=== PATIENT | female | born 1980 | race Caucasian/White ===

== ENCOUNTER → 2017-02-23 | Outpatient (CLI) | payer MEDICAID ==
[~2017-02-23] MED LIST: ACHD5005 PO; ALPR1T PO; AMOX500C2 PO; CEPH500C PO; DULO20CA; FRS325T PO; GFCD10B PO; HYDR1CAP2 PO; IBP600T1 PO; METH20TA PO; METR500T PO; PRCD5U PO; PREN-115 PO; PREN1TAB14; QTP200T; QTP200T PO; TRAZ-28 PO; ZLP10T PO
--- NOTE | 2017-02-23 15:23 | Diagnostic Imaging Report ---
OB ultrasound. INDICATION: survey. FINDINGS: There are no prior studies available for comparison. There is a single live fetus in cephalic presentation. heart motion is noted and a rate of 155 bpm is recorded. There are no abnormalities identified. The growth parameters are fairly uniform. The growth parameters are as follows: BPD: 5.68, 23 weeks 3 days. Head circumference: 21.09, 23 weeks 2 days. Abdominal circumference: 19.81, 24 weeks 4 days. Femur length: 4.16, 22 weeks 4 days. The estimated weight is 644 g. The LMP percentile is 60%. The placenta is anterior and there is no previa. The amniotic fluid volume is within normal limits. IMPRESSION: 1. There is a single live fetus of approximately 23 weeks 5 days gestation +/- 2 weeks. The EDC is June 17, 2017. 2. There are no abnormalities identified. 3. The growth parameters are fairly uniform. Dictated by: Dictated on workstation # [id number]
== END ==
LOC: RAD 10:58
PROVIDERS: ATTEND Obstetrics & Gynecology
DX: Z34.92 Encounter for supervision of normal pregnancy, unspecified, second trimester (principal); Z3A.23 23 weeks gestation of pregnancy
CPT/HCPCS: 76805

== ENCOUNTER 2017-05-17 18:31 | Outpatient (CLI) | payer MEDICAID ==
[~2017-05-17] VITALS: Ht 162.6 cm; Wt 94.8 kg
[2017-05-17 18:44] VITALS: BP 142/96
[2017-05-17 19:05] VITALS: BP 126/72
[2017-05-17] MEDS ORDERED: PREN-142 PO (19:05)
[2017-05-17] MEDS ORDERED: ACET325T38 PO (19:05)
[2017-05-17] MEDS ORDERED: fluCOnazole (DIFLUCAN) 100 MG TAB PO NR (19:30)
[2017-05-17] MEDS ORDERED: D5 LR IV SOLUTION 1,000 ML IV ONE (19:30)
[2017-05-17 20:04] LABS: BILIRUBIN,URINE NEGATIVE (NEGATIVE); KETONES,URINE NEGATIVE (NEGATIVE); LEUKOCYTE ESTERASE ,URINE 3+ (NEGATIVE); NITRITE,URINE NEGATIVE (NEGATIVE); PH,URINE 7 (5-9); PROTEIN,URINE 1+ (NEGATIVE); UROBILINOGEN,URINE NORMAL (NORMAL)
[2017-05-17 20:11] LABS: YEAST,URINE SMALL /HPF
--- NOTE | 2017-05-17 20:37 | Diagnostic Imaging Report ---
INDICATION: leaking fluid COMPARISON: 02/23/2017. Biophysical Profile Score: Movement: 2 Breathin Tone: 2 Fluid: 2 Total: 06/29 Heart Rate: 144 BPM Presentation is cephalic. Placenta is anterior. DYLLAN is 17.7cm. The single largest vertical pocket is 7.6 cm. IMPRESSION: Normal Biophysical Profile Score. Dictated by: Dictated on workstation # [id number]
--- NOTE | 2017-05-18 12:16 | Physician Query-Final Dx ---
TIN DOBSON 05/18/17 1216: Clinic Account Progress/Dx Physician Query: Please give diagnosis Date of Service May 17, 2017 at 18:31 ТАТЬЯНА CORONA MD 05/19/17 1627: Clinic Account Progress/Dx DIAGNOSIS: Diagnosis Vaginal discharge, cramping, TIN DOBSON May 18, 2017 12:16 ТАТЬЯНА CORONA MD May 19, 2017 16:27
== END 2017-05-17 21:10 | disposition home or self-care (01) ==
LOC: WSo 18:31 → LDRP 18:31 → WSo 21:10
PROVIDERS: ATTEND Obstetrics & Gynecology
DX: O26.893 Other specified pregnancy related conditions, third trimester (principal); N89.8 Other specified noninflammatory disorders of vagina; Z3A.35 35 weeks gestation of pregnancy
CPT/HCPCS: 76819; 81000; 87088; 87186; 96360; 96361; 99214

== ENCOUNTER 2017-05-21 17:23 | Observation (INO) | payer MEDICAID ==
[~2017-05-21] VITALS: Ht 162.6 cm; Wt 94.8 kg
[~2017-05-21 17:23] MED LIST changes: +ACET325T38 PO; +PREN-142 PO
[2017-05-21 17:35] VITALS: BP 150/96
[2017-05-21 18:05] VITALS: BP 157/88
[2017-05-21 18:22] LABS: BILIRUBIN,URINE NEGATIVE (NEGATIVE); KETONES,URINE NEGATIVE (NEGATIVE); LEUKOCYTE ESTERASE ,URINE 1+ (NEGATIVE); NITRITE,URINE NEGATIVE (NEGATIVE); PH,URINE 7 (5-9); PROTEIN,URINE NEGATIVE (NEGATIVE); UROBILINOGEN,URINE NORMAL (NORMAL)
[2017-05-21 18:41] LABS: BASOPHILS % (AUTO) 0 % (0-10); EOSINOPHILS # (AUTO) 0.2 10^3/uL (0.0-0.3); EOSINOPHILS % (AUTO) 1 % (0-10); LYMPHOCYTES # (AUTO) 1.6 X 10^3 (1.0-4.0); LYMPHOCYTES % (AUTO) 12 % (12-44); MEAN CORPUSCULAR HEMOGLOBIN 30 PG (25-34); MEAN CORPUSCULAR HGB CONC 34 G/DL (32-36); MEAN CORPUSCULAR VOLUME 89 FL (80-99); MONOCYTES # (AUTO) 0.8 X 10^3 (0.0-1.0); MONOCYTES % (AUTO) 6 % (0-12); NEUTROPHILS # (AUTO) 10.7 X 10^3 (1.8-7.8); NEUTROPHILS % (AUTO) 81 % (42-75); PLATELET COUNT 255 10^3/uL (130-400); RED BLOOD COUNT 3.89 10^6/uL (4.35-5.85); RED CELL DISTRIBUTION WIDTH 13.1 % (10.0-14.5); WHITE BLOOD COUNT 13.3 10^3/uL (4.3-11.0)
[2017-05-21 18:42] LABS: PROTEIN/CREATININE RATIO 0.16
[2017-05-21 18:48] LABS: WBC,URINE 0-2 /HPF
[2017-05-21 19:03] LABS: ALANINE AMINOTRANSFERASE 15 U/L (0-55); ALBUMIN 3.2 GM/DL (3.2-4.5); ANION GAP 10 MMOL/L (5-14); ASPARTATE AMINO TRANSFERASE 18 U/L (5-34); BILIRUBIN,TOTAL 0.3 MG/DL (0.1-1.0); BLOOD UREA NITROGEN 7 MG/DL (7-18); BUN/CREATININE RATIO 11; CALCIUM 9.6 MG/DL (8.5-10.1); CARBON DIOXIDE 19 MMOL/L (21-32); CHLORIDE 109 MMOL/L (98-107); CREATININE SERUM 0.63 MG/DL (0.60-1.30); GFR ESTIMATED > 60; GLUCOSE 87 MG/DL (70-105); POTASSIUM 3.9 MMOL/L (3.6-5.0); SODIUM 138 MMOL/L (135-145); TOTAL PROTEIN 6.8 GM/DL (6.4-8.2); URIC ACID 5.3 MG/DL (2.6-7.2)
[2017-05-21 19:25] VITALS: BP 135/91
[2017-05-21] MEDS ORDERED: NS IV 1000 ML 1,000 ML ONE (19:58)
[2017-05-21 20:10] VITALS: BP 143/80
[2017-05-21] MEDS: NS IV 1000 ML 1,000 ML IV SCH (20:12)
[2017-05-21] MEDS ORDERED: DIPH25CA79 PO (20:34)
[2017-05-21] MEDS ORDERED: MICO44CM VG (20:34)
[2017-05-21 21:13] VITALS: BP 137/87
[2017-05-21 23:20] VITALS: BP 123/80
[2017-05-22] VITALS (9 sets, daily range): BP systolic 114–129; BP diastolic 65–79
[2017-05-22] MEDS: NS IV 1000 ML 1,000 ML IV SCH (05:59)
--- NOTE | 2017-05-22 07:57 | History & Physical-OB ---
OB - Chief Complaint & HPI Date/Time Date of Admission: Date of Admission: May 21, 2017 at 7:00 pm Time Seen by Provider: 07:40 Chief Complaint/History Hx : 6 Hx Para: 5 Expected Date of Delivery: Jun 18, 2017 Gestational Age in Weeks: 36 Indication for : desires repeat Other reason for admission: Patient presents with RLQ pain last evening and increase in swelling. Reports contractions that are painful as well. Denies LOF, VB. +FM Admission Nurse Assessment Rev: Yes History of Labs O pos Antibody neg RI RPR NR HIV NR HBsAg NR HCsAg POS GC neg GBS unknown Allergies and Home Medications Allergies Coded Allergies: No Known Drug Allergies (Unverified , 06/18/07) Home Medications Diphenhydramine HCl 25 Mg Capsule, 50 MG PO HS, (Reported) Miconazole Nitrate 44 Gm Cmb.pf.crm, 44 GM VG, (Reported) Vit No.124/Iron/FA 1 Each Tablet, 1 EACH PO DAILY, (Reported) Trazodone HCl 50 Mg Tablet, 100 MG PO HS, (Reported) OB - History Hx of Present Care: Yes Ultrasounds: Normal mid trimester US Obstetrical Complications: Gestational Hypertension Medical Complications: Other (Hep C pos and AMA) Obstetrical History Hx : 6 Hx Para: 5 Hx Termination: No Hx Total # of Abortions (Spona: 0 Hx Multiple Gestation: No Hx Stillbirth: No Hx Complication: No Hx Induced Hypertens: Yes (FIRST ) Hx Maternal Gestational Diabet: No Delivery History Hx Dystocia: Yes Hx Large For Gestational Age I: Yes Hx Small for Gestational Age I: No Hx Section: Yes Hx Vaginal Delivery Post C-Sec: No Hx Blood Disorders: No Patient Past Medical History Hep C Social History/Family History Recent Infectious Disease Expo: No Sexually Transmitted Disease: No Immunizations Tetanus Booster (TDap): Unknown OB - Admission Exam Physical Exam Date Seen by Provider: May 22, 2017 Time Seen by Provider: 07:50 Vitals: Vital Signs 05/22/17 05/22/17 03:20 06:20 Temp 98.7 Pulse 89 Resp 18 B/P (MAP) 125/79 HEENT: NCAT Heart: Rhythm Normal Lungs: Clear Abdomen: Gravid Extremities: Edema (+1) Reflexes: Normal Cervical Dilatation: Fingertip Effacement: 50% Station: -3 Membranes: Intact Heart Rate: 130's Accelerations: Accelerations Present Decelerations: No Decelerations Short Term Variability: Present Contractions on Admission: < 5 Minutes Apart Intensity: Mild Labs Laboratory Tests Test 05/21/17 17:25 05/21/17 18:15 05/21/17 18:31 Range/Units Urine Color YELLOW Urine Clarity CLEAR Urine pH 7 5-9 Urine Specific [place] 1.010 L 1.016-1.022 Urine Protein NEGATIVE 8 6-12 MG/DL Urine Glucose (UA) NEGATIVE NEGATIVE Urine Ketones NEGATIVE NEGATIVE Urine Nitrite NEGATIVE NEGATIVE Urine Bilirubin NEGATIVE NEGATIVE Urine Urobilinogen NORMAL NORMAL MG/DL Urine Leukocyte Esterase 1+ H NEGATIVE Urine RBC (Auto) NEGATIVE NEGATIVE Urine RBC NONE /HPF Urine WBC 0-2 /HPF Urine Squamous Epithelial Cells 10-25 H /HPF Urine Crystals NONE /LPF Urine Bacteria TRACE /HPF Urine Casts NONE /LPF Urine Mucus NEGATIVE /LPF Urine Culture Indicated NO Urine Creatinine 50 30-125 MG/DL Urine Protein/Creatinine Ratio 0.16 White Blood Count 13.3 H 4.3-11.0 10^3/uL Red Blood Count 3.89 L 4.35-5.85 10^6/uL Hemoglobin 11.8 11.5-16.0 G/DL Hematocrit 35 35-52 % Mean Corpuscular Volume 89 80-99 FL Mean Corpuscular Hemoglobin 30 25-34 PG Mean Corpuscular Hemoglobin Concent 34 32-36 G/DL Red Cell Distribution Width 13.1 10.0-14.5 % Platelet Count 255 130-400 10^3/uL Mean Platelet Volume 10.0 7.4-10.4 FL Neutrophils (%) (Auto) 81 H 42-75 % Lymphocytes (%) (Auto) 12 12-44 % Monocytes (%) (Auto) 6 0-12 % Eosinophils (%) (Auto) 1 0-10 % Basophils (%) (Auto) 0 0-10 % Neutrophils # (Auto) 10.7 H 1.8-7.8 X 10^3 Lymphocytes # (Auto) 1.6 1.0-4.0 X 10^3 Monocytes # (Auto) 0.8 0.0-1.0 X 10^3 Eosinophils # (Auto) 0.2 0.0-0.3 10^3/uL Basophils # (Auto) 0.0 0.0-0.1 10^3/uL Sodium Level 138 135-145 MMOL/L Potassium Level 3.9 3.6-5.0 MMOL/L Chloride Level 109 H 98-107 MMOL/L Carbon Dioxide Level 19 L 21-32 MMOL/L Anion Gap 10 5-14 MMOL/L Blood Urea Nitrogen 7 7-18 MG/DL Creatinine 0.63 0.60-1.30 MG/DL Estimat Glomerular Filtration Rate > 60 BUN/Creatinine Ratio 11 Glucose Level 87 70-105 MG/DL Uric Acid 5.3 2.6-7.2 MG/DL Calcium Level 9.6 8.5-10.1 MG/DL Total Bilirubin 0.3 0.1-1.0 MG/DL Aspartate Amino Transf (AST/SGOT) 18 5-34 U/L Alanine Aminotransferase (ALT/SGPT) 15 0-55 U/L Alkaline Phosphatase 136 40-136 U/L Total Protein 6.8 6.4-8.2 GM/DL Albumin 3.2 3.2-4.5 GM/DL OB - Assessment/Plan/Diagnosis Assessment Assessment: other (Abdominal pains, GHTN, and Uterine contractions) Plan Plan: Expectant Management Other Plan Patient contraction pattern subsided this AM with IVF overnight. Labs WNL. Plan for DC this morning, given strict instructions on salt restriction with GHTN and swelling. PTL precautions reviewed. Keep follow up with Dr. Chatterjee Discharge Diagnosis Diagnosis: 36 yo @ 36 weeks Previous c/s x 3 Uterine contractions RLQ pain- resolved GHTN Hep C LICO PENA DO May 22, 2017 7:57 am
== END 2017-05-22 08:40 | disposition home or self-care (01) ==
LOC: LDRP 17:23 → WSo 17:23 → LDRP 19:00
PROVIDERS: ADMIT Obstetrics & Gynecology; ATTEND Obstetrics & Gynecology
DX: O47.03 False labor before 37 completed weeks of gestation, third trimester (principal); O13.3 Gestational [pregnancy-induced] hypertension without significant proteinuria, third trimester; O26.613 Liver and biliary tract disorders in pregnancy, third trimester; B19.20 Unspecified viral hepatitis C without hepatic coma; Z3A.36 36 weeks gestation of pregnancy
CPT/HCPCS: 36415; 80053; 81000; 82570; 84156; 84550; 85025; 96360; 96361

== ENCOUNTER 2017-05-26 16:50 | Outpatient (CLI) | payer MEDICAID ==
[~2017-05-26] VITALS: Ht 162.6 cm; Wt 94.8 kg
[2017-05-26] VITALS (7 sets, daily range): BP systolic 126–140; BP diastolic 74–101
[~2017-05-26 16:50] MED LIST changes: +DIPH25CA79 PO; +MICO44CM VG
[2017-05-26 17:15] LABS: BILIRUBIN,URINE NEGATIVE (NEGATIVE); KETONES,URINE NEGATIVE (NEGATIVE); LEUKOCYTE ESTERASE ,URINE 1+ (NEGATIVE); NITRITE,URINE NEGATIVE (NEGATIVE); PH,URINE 7 (5-9); PROTEIN,URINE NEGATIVE (NEGATIVE); UROBILINOGEN,URINE NORMAL (NORMAL)
[2017-05-26] MEDS ORDERED: NS IV 1000 ML 1,000 ML IV SCH (18:00)
[2017-05-26 18:10] LABS: MEAN PLATELET VOLUME 9.8 FL (7.4-10.4); RED BLOOD COUNT 3.76 10^6/uL (4.35-5.85); RED CELL DISTRIBUTION WIDTH 12.9 % (10.0-14.5); WHITE BLOOD COUNT 11.3 10^3/uL (4.3-11.0)
[2017-05-26 18:30] LABS: ALANINE AMINOTRANSFERASE 11 U/L (0-55); ALBUMIN 3.3 GM/DL (3.2-4.5); ANION GAP 9 MMOL/L (5-14); ASPARTATE AMINO TRANSFERASE 14 U/L (5-34); BILIRUBIN,TOTAL 0.3 MG/DL (0.1-1.0); BLOOD UREA NITROGEN 5 MG/DL (7-18); BUN/CREATININE RATIO 8; CALCIUM 9.8 MG/DL (8.5-10.1); CARBON DIOXIDE 22 MMOL/L (21-32); CHLORIDE 108 MMOL/L (98-107); CREATININE SERUM 0.62 MG/DL (0.60-1.30); GFR ESTIMATED > 60; GLUCOSE 81 MG/DL (70-105); LACTATE DEHYDROGENASE 127 U/L (125-220); POTASSIUM 3.5 MMOL/L (3.6-5.0); SODIUM 139 MMOL/L (135-145); TOTAL PROTEIN 6.5 GM/DL (6.4-8.2); URIC ACID 5.8 MG/DL (2.6-7.2)
--- NOTE | 2017-05-27 12:35 | Physician Query-Final Dx ---
TIN DOBSON 05/27/17 1235: Clinic Account Progress/Dx Physician Query: Please give diagnosis Date of Service May 26, 2017 at 16:50 ТАТЬЯНА CORONA MD 05/28/17 0817: Clinic Account Progress/Dx DIAGNOSIS: Diagnosis Third trimester contractions, 36 weeks , history of section TIN DOBSON May 27, 2017 12:35 ТАТЬЯНА CORONA MD May 28, 2017 08:17
[2017-05-29] MEDS ORDERED: DOCU100C37 PO ×2 (08:49)
[2017-05-29] MEDS ORDERED: IBUP-1773 PO ×2 (08:49)
[2017-05-29] MEDS ORDERED: FERR-74 PO ×2 (08:49)
[2017-05-29] MEDS ORDERED: HYDR-3812 PO ×2 (08:49)
== END 2017-05-26 19:50 | disposition home or self-care (01) ==
LOC: WSo 16:50 → LDRP 16:50 → WSo 19:50
PROVIDERS: ATTEND Obstetrics & Gynecology
DX: O34.211 Maternal care for low transverse scar from previous cesarean delivery (principal); Z3A.36 36 weeks gestation of pregnancy
CPT/HCPCS: 36415; 80053; 81000; 83615; 84550; 85027; 96360; 96361; 99213

== ENCOUNTER 2017-05-28 06:06 | Inpatient (IN) | payer MEDICAID ==
[~2017-05-28] VITALS: Ht 162.6 cm; Wt 95.3 kg
[~2017-05-28 06:06] MED LIST changes: +CITRIC ACID/SOB CIT (BICITRA) 30 ML UDC ONE; +FAMOTIDINE 20MG/2ML IV (PEPCID) ONE; +LACTATED RINGERS 1,000 ML IV ONE; +METOCLOPRAMIDE INJ 10 MG/2 ML (REGLAN) ONE
[2017-05-28 06:11] VITALS: BP 131/77
[2017-05-28] MEDS ORDERED: FAMOTIDINE 20MG/2ML IV (PEPCID) IV ONE (06:15)
[2017-05-28] MEDS ORDERED: CATHETER FLUSH 10 ML SYR IV PRN (06:15)
[2017-05-28] MEDS ORDERED: CITRIC ACID/SOB CIT (BICITRA) 30 ML UDC PO ONE (06:15)
[2017-05-28] MEDS ORDERED: METOCLOPRAMIDE INJ 10 MG/2 ML (REGLAN) IV ONE (06:15)
[2017-05-28] MEDS ORDERED: LACTATED RINGERS 1,000 ML IV PRN ×2 (06:15)
[2017-05-28 06:33] LABS: BILIRUBIN,URINE NEGATIVE (NEGATIVE); KETONES,URINE NEGATIVE (NEGATIVE); LEUKOCYTE ESTERASE ,URINE 1+ (NEGATIVE); NITRITE,URINE NEGATIVE (NEGATIVE); PH,URINE 7 (5-9); PROTEIN,URINE 1+ (NEGATIVE); UROBILINOGEN,URINE NORMAL (NORMAL)
[2017-05-28 06:36] LABS: BASOPHILS % (AUTO) 0 % (0-10); EOSINOPHILS % (AUTO) 0 % (0-10); LYMPHOCYTES # (AUTO) 1.1 X 10^3 (1.0-4.0); LYMPHOCYTES % (AUTO) 7 % (12-44); MEAN CORPUSCULAR HEMOGLOBIN 30 PG (25-34); MEAN CORPUSCULAR HGB CONC 34 G/DL (32-36); MEAN CORPUSCULAR VOLUME 89 FL (80-99); MONOCYTES # (AUTO) 0.6 X 10^3 (0.0-1.0); MONOCYTES % (AUTO) 4 % (0-12); NEUTROPHILS # (AUTO) 13.9 X 10^3 (1.8-7.8); NEUTROPHILS % (AUTO) 89 % (42-75); PLATELET COUNT 274 10^3/uL (130-400); RED BLOOD COUNT 3.81 10^6/uL (4.35-5.85); WHITE BLOOD COUNT 15.6 10^3/uL (4.3-11.0)
[2017-05-28 06:42] LABS: WBC,URINE RARE /HPF
[2017-05-28 06:49] LABS: ANISOCYTOSIS SLIGHT; BAND NEUTROPHILS 0 %; BASOPHILS % (MANUAL) 0 %; EOSINOPHILS % (MANUAL) 0 %; LYMPHOCYTES % (MANUAL) 7 %; NEUTROPHILS % (MANUAL) 90 %; POLYCHROMASIA SLIGHT
[2017-05-28] MEDS ORDERED: NS (IVPB) 50 ML ONE (06:59)
[2017-05-28] MEDS ORDERED: metroNIDAZOLE 500MG/100ML IVPB 100 ML ONE (06:59)
[2017-05-28] MEDS ORDERED: ceFAZolin 1,000 MG (ANCEF) VIAL ONE (06:59)
[2017-05-28] MEDS ORDERED: metroNIDAZOLE 500MG/100ML IVPB 100 ML IV ONE (07:00)
[2017-05-28] MEDS ORDERED: ceFAZolin INJECTION 1,000 MG in NS (IVPB) 50 ML IV ONE (07:00)
--- NOTE | 2017-05-28 07:20 | Progress Note-Pre Operative ---
Pre-Operative Progress Note H&P Reviewed The H&P was reviewed, patient examined and no changes noted. Date Seen by Provider: May 28, 2017 Time Seen by Provider: 07:12 Date H&P Reviewed: May 28, 2017 Time H&P Reviewed: 06:50 Pre-Operative Diagnosis: gestational hypertension, previous section, labor JHONY PROCTOR DO May 28, 2017 07:20
[2017-05-28] MEDS ORDERED: fentaNYL INJECTION 100 MCG/2 ML AMP ONE (07:23)
[2017-05-28] MEDS ORDERED: PHENYLEPHRINE 100 MCG/ML 10 ML (ANESTHESIA) SYR ONE (07:52)
[2017-05-28] MEDS ORDERED: OXYTOCIN/NORMAL SALINE 1,000 ML IV ONE (07:52)
[2017-05-28] MEDS ORDERED: OXYTOCIN/NORMAL SALINE 500 ML IV SCH (08:37)
[2017-05-28] MEDS ORDERED: D5 LR IV SOLUTION 1,000 ML IV SCH (08:37)
--- NOTE | 2017-05-28 08:37 | Cesarean Section Operative ---
Procedure Procedure Note Pre-operative Diagnosis: Lana Saavedra is a (36 /Para / ,Gestational Age (wks)37 with [] Post-operative Diagnosis: same [] Procedure: [] low transverse section Physician: JHONY PROCTOR Track Inspecting Supervisor: Mila Martinez APRN commercial lending assistant is necessary for retraction and the procedure could not have been performed without her. Estimated blood loss: 500 mL Disposition: stable Findings: Viable female , Apgars 7/9, weight 6#13oz, intact placenta, 3vc, normal appearing uterus, tubes, and ovaries. Indications:Lana Saavedra is a (36 /Para / ,Gestational Age (wks)37 presenting for []. Procedure Details: The patient was seen in pre-op and the procedure was discussed with the patient in full, including the risks, benefits, and alternatives. All questions were answered. The patient was taken to the operating room and a time out was performed, verifying patient and procedure. After spinal anesthesia was placed by our anesthesia colleagues, the patient was placed in the dorsal supine with leftward tilt for uterine displacement.~ Her abdomen was then prepped and draped in the typical sterile fashion. A Pfannenstiel skin incision was made using a scalpel and carried down through the underlying fascia. The fascia was incised in the midline and tented up using Leydi clamps. On both the inferior and superior fascia side the rectus muscle was dissected off bluntly and sharply using Martins scissors. The peritoneum was identified and entered bluntly in the midline. This was then stretched laterally using manual strength. After entering the abdominal cavity and confirming lack of intraperitoneal adhesions, a large Yong retractor was placed and the lower uterine segment was visualized. A bladder flap was created with the use of Metzenbaum scissors.~ A scalpel was utilized to make a low transverse uterine incision. Amniotomy was performed with an Allis clamp with return of clear fluid. The 's head was grasped and brought to the level of the incision. Fundal pressure was applied and was delivered without difficulty. Mouth and nares were suctioned with bulb suction. After the umbilical cord was clamped and cut, the was handed off to the pediatric staff. A sample of cord blood was then obtained. The placenta was delivered intact via uterine massage. The uterus was exteriorized and cleared of all clots and debris. The uterine incision was closed using 0 Vicryl in a running locked fashion. A second imbricated layer was placed using 0 Vicryl in a running fashion as well. The uterus was flexed forward and the posterior rectouterine space was inspected and cleared of all clots and debris. Again the hysterotomy site was examined and hemostasis was observed. The bilateral tubes and ovaries appeared normal. The uterus was placed back into the abdominal cavity and abdominal gutters were cleared of all clots and debris. A final check of the uterine incision showed it to be hemostatic. The peritoneum was closed using 3-0 Vicryl in a running fashion. The fascia was closed with 0 Vicryl in a running fashion. The subcutaneous space was hemostatic, and irrigated. The subcutaneous space was closed with 3-0 Vicryl in several single interrupted stitches. The skin was then closed using 4- 0 Monocryl in a running subcuticular fashion. The skin edges were reapproximated together and were hemostatic. A pressure dressing was applied. All sponge, lap and needle counts were correct at the end of the procedure per nursing. Vitals - Labs Labs Laboratory Tests 05/28/17 06:10: Urine Color YELLOW, Urine Clarity CLEAR, Urine pH 7, Urine Specific [place] 1.010L, Urine Protein 1+H, Urine Glucose (UA) NEGATIVE, Urine Ketones NEGATIVE, Urine Nitrite NEGATIVE, Urine Bilirubin NEGATIVE, Urine Urobilinogen NORMAL, Urine Leukocyte Esterase 1+H, Urine RBC (Auto) NEGATIVE, Urine RBC NONE, Urine WBC RARE, Urine Squamous Epithelial Cells 10-25H, Urine Crystals NONE, Urine Bacteria TRACE, Urine Casts NONE, Urine Mucus SMALLH, Urine Culture Indicated NO 05/28/17 06:15: White Blood Count 15.6H, Red Blood Count 3.81L, Hemoglobin 11.6, Hematocrit 34L , Mean Corpuscular Volume 89, Mean Corpuscular Hemoglobin 30, Mean Corpuscular Hemoglobin Concent 34, Red Cell Distribution Width 13.0, Platelet Count 274, Mean Platelet Volume 10.0, Neutrophils (%) (Auto) 89H, Lymphocytes (%) (Auto) 7L , Monocytes (%) (Auto) 4, Eosinophils (%) (Auto) 0, Basophils (%) (Auto) 0, Neutrophils # (Auto) 13.9H, Lymphocytes # (Auto) 1.1, Monocytes # (Auto) 0.6, Eosinophils # (Auto) 0.0, Basophils # (Auto) 0.0, Neutrophils % (Manual) 90, Lymphocytes % (Manual) 7, Monocytes % (Manual) 3, Eosinophils % (Manual) 0, Basophils % (Manual) 0, Band Neutrophils 0, Polychromasia SLIGHT, Anisocytosis SLIGHT JHONY PROCTOR DO May 28, 2017 08:37
[2017-05-28] MEDS ORDERED: HYDROmorphone (DILAUDID) 2 MG/ML VIAL IVP PRN (08:45)
[2017-05-28] MEDS ORDERED: MEASLES,MUMPS,RUBELLA 1 EA INJ SC SCH (08:45)
[2017-05-28] MEDS ORDERED: TETANUS,DIPTH,PERTUSS P/F (BOOSTRIX) 0.5 ML VIAL IM SCH (08:45)
[2017-05-28 10:15] VITALS: BP 141/81
[2017-05-28 10:48] VITALS: BP 150/91
[2017-05-28] MEDS: KETOROLAC 30 MG/ML VIAL IVP SCH ×3 (11:00→23:27)
[2017-05-28] MEDS: DOCUSATE SODIUM 100 MG (COLACE) CAP PO SCH ×2 (13:03→20:24)
[2017-05-28] MEDS: CATHETER FLUSH 10 ML SYR IV SCH ×2 (14:01→22:00)
[2017-05-28] MEDS: HYDROcodone/APAP 5 MG/325 MG (LORTAB) TAB PO PRN ×2 (14:33→20:36)
[2017-05-28 16:37] VITALS: BP 138/78
[2017-05-28 20:00] VITALS: BP 128/77
[2017-05-29] VITALS: BP 116/64
[2017-05-29 04:00] VITALS: BP 128/78
[2017-05-29] MEDS: KETOROLAC 30 MG/ML VIAL IVP SCH (05:37)
[2017-05-29 06:12] LABS: BASOPHILS % (AUTO) 0 % (0-10); EOSINOPHILS # (AUTO) 0.2 10^3/uL (0.0-0.3); EOSINOPHILS % (AUTO) 1 % (0-10); LYMPHOCYTES # (AUTO) 1.5 X 10^3 (1.0-4.0); LYMPHOCYTES % (AUTO) 9 % (12-44); MEAN CORPUSCULAR HEMOGLOBIN 30 PG (25-34); MEAN CORPUSCULAR HGB CONC 33 G/DL (32-36); MEAN CORPUSCULAR VOLUME 91 FL (80-99); MEAN PLATELET VOLUME 10.2 FL (7.4-10.4); MONOCYTES # (AUTO) 0.8 X 10^3 (0.0-1.0); MONOCYTES % (AUTO) 5 % (0-12); NEUTROPHILS # (AUTO) 14.2 X 10^3 (1.8-7.8); NEUTROPHILS % (AUTO) 85 % (42-75); PLATELET COUNT 245 10^3/uL (130-400); RED BLOOD COUNT 3.44 10^6/uL (4.35-5.85); RED CELL DISTRIBUTION WIDTH 13.1 % (10.0-14.5); WHITE BLOOD COUNT 16.6 10^3/uL (4.3-11.0)
[2017-05-29] MEDS: CATHETER FLUSH 10 ML SYR IV SCH (06:14)
[2017-05-29] MEDS: FERROUS SULF 325 MG (IRON) TAB PO SCH (06:34)
[2017-05-29 08:00] VITALS: BP 136/82
--- NOTE | 2017-05-29 08:47 | Postpartum Progress Note ---
Post Op Post-operative Day #1 Subjective: Patient is without complaints. Ambulating, voiding after smith removed. Tolerating a regular diet without nausea or vomiting. Normal lochia. Pain is well controlled with oral pain medications. Bottle feeding. Objective: VS - Last 72 Hours, by Label 05/28/17 05/28/17 05/28/17 05/28/17 06:11 10:15 10:48 16:37 Temp 96.7 96.5 96.4 96.4 Pulse 108 79 82 95 Resp 18 14 14 16 B/P (MAP) 131/77 141/81 150/91 138/78 Pulse Ox 98 99 98 O2 Delivery Room Air Room Air Room Air Room Air 05/28/17 05/29/17 05/29/17 20:00 00:00 04:00 Temp 98.7 96.6 97.4 Pulse 89 82 85 Resp 16 16 16 B/P (MAP) 128/77 116/64 128/78 Pulse Ox 99 99 97 O2 Delivery Room Air Room Air Room Air Physical Exam: General - Alert and oriented, no apparent distress Abdomen - Soft, appropriately tender to palpation, non-distended, fundus firm at umbilicus Incision - clean, dry and intact; no erythema or induration, no drainage Extremities - no edema, negative Amina's bilaterally Laboratory Tests Test 05/29/17 05:27 Range/Units White Blood Count 16.6 H 4.3-11.0 10^3/uL Red Blood Count 3.44 L 4.35-5.85 10^6/uL Hemoglobin 10.4 L 11.5-16.0 G/DL Hematocrit 31 L 35-52 % Mean Corpuscular Volume 91 80-99 FL Mean Corpuscular Hemoglobin 30 25-34 PG Mean Corpuscular Hemoglobin Concent 33 32-36 G/DL Red Cell Distribution Width 13.1 10.0-14.5 % Platelet Count 245 130-400 10^3/uL Mean Platelet Volume 10.2 7.4-10.4 FL Neutrophils (%) (Auto) 85 H 42-75 % Lymphocytes (%) (Auto) 9 L 12-44 % Monocytes (%) (Auto) 5 0-12 % Eosinophils (%) (Auto) 1 0-10 % Basophils (%) (Auto) 0 0-10 % Neutrophils # (Auto) 14.2 H 1.8-7.8 X 10^3 Lymphocytes # (Auto) 1.5 1.0-4.0 X 10^3 Monocytes # (Auto) 0.8 0.0-1.0 X 10^3 Eosinophils # (Auto) 0.2 0.0-0.3 10^3/uL Basophils # (Auto) 0.0 0.0-0.1 10^3/uL Assessment: 36 y/o post-operative day # 1, status post RLTCS. Recovering well, hemodynamically stable Acute blood loss anemia Hgb 10.4 Gestational hypertension since 26 wga Chronic Hep C Plan: Routine post-operative care. Encourage ambulation. VTE prophylaxis: SCDs. Ferrous sulfate supplementation. Monitor BPs, all mild range or better currently Plan for discharge POD#2 or 3. Vitals - Labs Vital Signs - I&O Vital Signs Date Time Temp Pulse Resp B/P (MAP) Pulse Ox O2 Delivery O2 Flow Rate FiO2 05/29/17 04:00 97.4 85 16 128/78 97 Room Air 05/29/17 00:00 96.6 82 16 116/64 99 Room Air 05/28/17 20:00 98.7 89 16 128/77 99 Room Air 05/28/17 16:37 96.4 95 16 138/78 98 Room Air 05/28/17 10:48 96.4 82 14 150/91 99 Room Air 05/28/17 10:15 96.5 79 14 141/81 98 Room Air I & O 05/29/17 07:00 Intake Total 3750 ml Output Total 1150 ml Balance 2600 ml Labs Laboratory Tests 05/29/17 05:27: White Blood Count 16.6H, Red Blood Count 3.44L, Hemoglobin 10.4L, Hematocrit 31L , Mean Corpuscular Volume 91, Mean Corpuscular Hemoglobin 30, Mean Corpuscular Hemoglobin Concent 33, Red Cell Distribution Width 13.1, Platelet Count 245, Mean Platelet Volume 10.2, Neutrophils (%) (Auto) 85H, Lymphocytes (%) (Auto) 9L , Monocytes (%) (Auto) 5, Eosinophils (%) (Auto) 1, Basophils (%) (Auto) 0, Neutrophils # (Auto) 14.2H, Lymphocytes # (Auto) 1.5, Monocytes # (Auto) 0.8, Eosinophils # (Auto) 0.2, Basophils # (Auto) 0.0 ТАТЬЯНА CORONA MD May 29, 2017 08:47
[2017-05-29] MEDS ORDERED: HYDR-3812 PO ×2 (08:49)
[2017-05-29] MEDS ORDERED: IBUP-1773 PO ×2 (08:49)
[2017-05-29] MEDS ORDERED: FERR-74 PO ×2 (08:49)
[2017-05-29] MEDS ORDERED: DOCU100C37 PO ×2 (08:49)
--- NOTE | 2017-05-29 08:51 | Discharge Inst-Women's Service ---
Discharge Inst-Women's Serv Depart Medication/Instructions New, Converted or Re-Newed RX: RX on Chart (and transmitted to pharmacy) Final Diagnosis TIUP, gestational HTN, repeat CD Consults/Follow Up Additional Follow Up: Yes Orders/Referrals One week with Dr. Chatterjee Activity Driving Instructions: No Driving for 1 Week NO SMOKING: NO SMOKING Nothing Inside Vagina: No Douching, No Disautel, No Tampons Other Activity No strenuous activity, heavy lifting over 10 lb until cleared by Dr. Chatterjee Diet Discharge Diet: No Restrictions Symptoms to Report to : Bleeding Excessive, Pain Increased, Fever Over 101 Degrees F, Pain/Pressure in Chest, Vaginal Bleeding Increase, Dizziness/Fainting , Nausea/Vomiting, Shortness of Breath Headache, vision changes, right upper quadrant abdominal pain, sudden increase in swelling, chest pain, shortness of breath For Any Problems or Questions: Contact Your Physician, Go to Emergency Room Skin/Wound Care Infection Signs and Symptoms: Increased Redness, Foul Odor of Wound, Increased Drainage Operative Area Clean and Dry: Keep Incision Clean/Dry Stitches/[place]/Dermabond: Dermabond, Care of Stitches Bathing Instructions: ТАТЬЯНА Rodriguez MD May 29, 2017 08:51
[2017-05-29] MEDS: DOCUSATE SODIUM 100 MG (COLACE) CAP PO SCH ×2 (09:39→21:44)
[2017-05-29] MEDS: HYDROcodone/APAP 5 MG/325 MG (LORTAB) TAB PO PRN (09:39)
[2017-05-29] MEDS: IBUPROFEN 600 MG (MOTRIN) TAB PO SCH ×3 (09:39→21:44)
[2017-05-29 12:00] VITALS: BP 150/95
--- NOTE | 2017-05-29 16:09 | Anesthesia-Regional Post-Op ---
Regional Patient Condition Mental Status: Alert, Oriented x3 Circulation: Same as Pre-Op Headache: Absent Sensation: Full Recovery Motor Block: Absent Post Op Complications Complications None Follow Up Care/Instructions Patient Instructions None needed. Anesthesia/Patient Condition Patient is doing well, no complaints, stable vital signs, no apparent adverse anesthesia problems. No complications reported per nursing. D/C home per [facility] [place] Criteria: No AGUILA INFANTE CRNA May 29, 2017 16:09
[2017-05-29 17:19] VITALS: BP 134/86
[2017-05-29 21:44] VITALS: BP 143/83
[2017-05-30 03:30] VITALS: BP 132/85
[2017-05-30] MEDS: IBUPROFEN 600 MG (MOTRIN) TAB PO SCH ×3 (03:30→14:51)
[2017-05-30 08:00] VITALS: BP 147/75
[2017-05-30] MEDS: FERROUS SULF 325 MG (IRON) TAB PO SCH (08:53)
[2017-05-30] MEDS: DOCUSATE SODIUM 100 MG (COLACE) CAP PO SCH (08:53)
--- NOTE | 2017-05-30 11:03 | Postpartum Progress Note ---
Post Op Post-operative Day #2 Subjective: Patient is without complaints. Ambulating, voiding. Tolerating a regular diet without nausea or vomiting. Normal lochia. Pain is well controlled with oral pain medications. Passing flatus. Bottle feeding. No si/sx severe pre- eclampsia. Objective: VS - Last 72 Hours, by Label 05/28/17 05/28/17 05/28/17 05/28/17 06:11 10:15 10:48 16:37 Temp 96.7 96.5 96.4 96.4 Pulse 108 79 82 95 Resp 18 14 14 16 B/P (MAP) 131/77 141/81 150/91 138/78 Pulse Ox 98 99 98 O2 Delivery Room Air Room Air Room Air Room Air 05/28/17 05/29/17 05/29/17 05/29/17 20:00 00:00 04:00 08:00 Temp 98.7 96.6 97.4 97.8 Pulse 89 82 85 93 Resp 16 16 16 16 B/P (MAP) 128/77 116/64 128/78 136/82 Pulse Ox 99 99 97 98 O2 Delivery Room Air Room Air Room Air Room Air 05/29/17 05/29/17 05/29/17 05/29/17 10:09 12:00 17:19 21:44 Temp 97.4 97.8 97.9 98.2 Pulse 112 99 86 Resp 16 20 18 B/P (MAP) 150/95 134/86 143/83 Pulse Ox 98 100 100 O2 Delivery Room Air 05/30/17 05/30/17 03:30 08:00 Temp 98.2 96.9 Pulse 87 68 Resp 18 20 B/P (MAP) 132/85 147/75 Pulse Ox 100 95 O2 Delivery Room Air Room Air Physical Exam: General - Alert and oriented, no apparent distress Abdomen - Soft, appropriately tender to palpation, non-distended, fundus firm at umbilicus Incision - clean, dry and intact; no erythema or induration, no drainage Extremities - no edema, negative Amina's bilaterally no new labs Assessment: 36 y/o post-operative day # 2, status post RLTCS. Recovering well, hemodynamically stable Acute blood loss anemia Hgb 10.4 Gestational hypertension since 26 wga - now with pre-eclampsia without severe features based on BPs and proteinuria Chronic Hep C Plan: Routine post-operative care. Encourage ambulation. VTE prophylaxis: SCDs. Ferrous sulfate supplementation. Monitor BPs, all mild range or better currently. No indication for anti- hypertensive therapy but will need one week BP/incision check. Plan for discharge today, f/u with Dr. Chatterjee in one week. Vitals - Labs Vital Signs - I&O Vital Signs Date Time Temp Pulse Resp B/P (MAP) Pulse Ox O2 Delivery O2 Flow Rate FiO2 05/30/17 08:00 96.9 68 20 147/75 95 Room Air 05/30/17 03:30 98.2 87 18 132/85 100 Room Air 05/29/17 21:44 98.2 86 18 143/83 100 05/29/17 17:19 97.9 99 20 134/86 100 05/29/17 12:00 97.8 112 16 150/95 98 Room Air I & O 05/30/17 07:00 Intake Total 800 ml Balance 800 ml ТАТЬЯНА CORONA MD May 30, 2017 11:03
[2017-05-30 16:10] VITALS: BP 147/75
== END 2017-05-30 16:10 | disposition home or self-care (01) | DRG 765 ==
LOC: LDRP 06:06 → WS 10:15
PROVIDERS: ADMIT Obstetrics & Gynecology; ATTEND Obstetrics & Gynecology
PROC: 10D00Z1 Extraction of Products of Conception, Low, Open Approach (ICD-10-PCS; principal; 2017-05-28 07:39)
DX: O13.4 Gestational [pregnancy-induced] hypertension without significant proteinuria, complicating childbirth (principal); O34.211 Maternal care for low transverse scar from previous cesarean delivery; O98.42 Viral hepatitis complicating childbirth; B18.2 Chronic viral hepatitis C; Z37.0 Single live birth; Z3A.37 37 weeks gestation of pregnancy; Z23 Encounter for immunization
CPT/HCPCS: 36415; 81000; 85007; 85025; 85027; 86850; 86900; 86901; 90715; 94664

== ENCOUNTER 2017-07-06 08:59 | Outpatient (CLI) | payer MEDICAID ==
[~2017-07-06] VITALS: Ht 162.6 cm; Wt 81.4 kg
[~2017-07-06 08:59] MED LIST changes: -CITRIC ACID/SOB CIT (BICITRA) 30 ML UDC ONE; +DOCU100C37 PO; -FAMOTIDINE 20MG/2ML IV (PEPCID) ONE; +FERR-74 PO; +HYDR-3812 PO; +IBUP-1773 PO; -LACTATED RINGERS 1,000 ML IV ONE; -METOCLOPRAMIDE INJ 10 MG/2 ML (REGLAN) ONE
[2017-07-06] MEDS ORDERED: AMPH20TA2 PO (09:12)
[2017-07-06 09:39] LABS: BASOPHILS % (AUTO) 0 % (0-10); EOSINOPHILS # (AUTO) 0.1 10^3/uL (0.0-0.3); EOSINOPHILS % (AUTO) 3 % (0-10); LYMPHOCYTES # (AUTO) 1.7 X 10^3 (1.0-4.0); LYMPHOCYTES % (AUTO) 32 % (12-44); MEAN CORPUSCULAR HEMOGLOBIN 30 PG (25-34); MEAN CORPUSCULAR HGB CONC 34 G/DL (32-36); MEAN CORPUSCULAR VOLUME 87 FL (80-99); MEAN PLATELET VOLUME 9.3 FL (7.4-10.4); MONOCYTES # (AUTO) 0.3 X 10^3 (0.0-1.0); MONOCYTES % (AUTO) 6 % (0-12); NEUTROPHILS # (AUTO) 3.2 X 10^3 (1.8-7.8); NEUTROPHILS % (AUTO) 60 % (42-75); PLATELET COUNT 262 10^3/uL (130-400); RED BLOOD COUNT 4.74 10^6/uL (4.35-5.85); RED CELL DISTRIBUTION WIDTH 11.9 % (10.0-14.5); WHITE BLOOD COUNT 5.4 10^3/uL (4.3-11.0)
[2017-07-06 09:40] LABS: BILIRUBIN,URINE NEGATIVE (NEGATIVE); KETONES,URINE NEGATIVE (NEGATIVE); LEUKOCYTE ESTERASE ,URINE 1+ (NEGATIVE); NITRITE,URINE NEGATIVE (NEGATIVE); PH,URINE 5 (5-9); PROTEIN,URINE 1+ (NEGATIVE); UROBILINOGEN,URINE NORMAL (NORMAL)
[2017-07-06 09:52] LABS: WBC,URINE 0-2 /HPF
== END 2017-07-06 10:09 | disposition home or self-care (01) ==
LOC: PREOP 08:59
PROVIDERS: ATTEND Obstetrics & Gynecology
DX: Z01.812 Encounter for preprocedural laboratory examination (principal); R10.2 Pelvic and perineal pain; N81.9 Female genital prolapse, unspecified
CPT/HCPCS: 36415; 81000; 85025; 86850; 86900; 86901; 87081

== ENCOUNTER 2017-07-13 06:10 | Day surgery (SDC) | payer MEDICAID ==
[~2017-07-13] VITALS: Ht 162.6 cm; Wt 81.4 kg
[~2017-07-13 06:10] MED LIST changes: +AMPH20TA2 PO
[2017-07-13] MEDS: LACTATED RINGERS 1,000 ML IV PRN ×2 (06:30→08:34)
[2017-07-13] MEDS ORDERED: NS (IVPB) 50 ML ONE (06:41)
[2017-07-13] MEDS ORDERED: metroNIDAZOLE 500MG/100ML IVPB 100 ML ONE (06:41)
[2017-07-13] MEDS ORDERED: ceFAZolin 1,000 MG (ANCEF) VIAL ONE (06:41)
[2017-07-13] MEDS ORDERED: ONDANSETRON 4 MG/2 ML (SDV) Z0FRAN ONE (06:58)
[2017-07-13] MEDS ORDERED: proPOfol 200 MG/20 ML (DIPRIVAN) VIAL IV ONE (06:58)
[2017-07-13] MEDS ORDERED: LIDOCAINE PF 2% 5 ML (XYLOCAINE) VIAL ONE (06:58)
[2017-07-13] MEDS ORDERED: ROCURONIUM 50 MG/5 ML (ZEMURON) VIAL IV ONE (06:58)
[2017-07-13] MEDS ORDERED: fentaNYL INJECTION 100 MCG/2 ML AMP ONE (06:59)
[2017-07-13] MEDS ORDERED: MIDAZOLAM 2 MG/2 ML (VERSED) VIAL ONE (06:59)
[2017-07-13 07:03] VITALS: BP 127/78
[2017-07-13] MEDS ORDERED: BUPIVACAINE 0.25% 30 ML (SENSORCAINE) VIAL ONE (07:08)
[2017-07-13] MEDS ORDERED: metroNIDAZOLE 500 MG/100 ML IVPB (PRE-MIX) IV ONE (07:15)
[2017-07-13] MEDS ORDERED: ceFAZolin 1 GM/NS 50 ML IVPB IV ONE ×2 (07:15)
--- NOTE | 2017-07-13 07:37 | Progress Note-Pre Operative ---
Pre-Operative Progress Note H&P Reviewed The H&P was reviewed, patient examined and no changes noted. Date Seen by Provider: Jul 13, 2017 Time Seen by Provider: 07:29 Date H&P Reviewed: Jul 13, 2017 Time H&P Reviewed: 07:28 Pre-Operative Diagnosis: dysmenorrhea, chronic pelvic pain, prev cs x 4 JHONY PROCTOR DO Jul 13, 2017 07:37
[2017-07-13] MEDS ORDERED: SEVOFLURANE (ULTANE) 15 ML INHAL SOLN ONE ×2 (09:41→09:57)
[2017-07-13] MEDS ORDERED: LACTATED RINGERS 1,000 ML IV ONE (09:41)
[2017-07-13] MEDS: KETOROLAC 30 MG/ML VIAL IV PRN ×2 (09:45→16:00)
--- NOTE | 2017-07-13 09:51 | Operative Report ---
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 She was prepped and draped in the usual sterile fashion in the dorsal lithotomy position. Exam revealed 2+ descensus. The uterus is also not mobile. A Maya catheter was placed. A speculum was placed in the vagina. The cervix was visualized and the anterior lip was grasped with a sharp toothed tenaculum. The uterus was sounded and depth was approximately 10 centimeters. I placed the Ines device. And then set the Ines to 10 cm and a 3.0 cm collar was advanced over the cervix. I inserted the Ines without difficulty, inflating the balloon and securing it around the fornix of the cervix. The collar was then secured with sutures at 12 o'clock. Attention was then turned to the patient's abdomen. A supraumbilical incision was made about 8 mm. A Veress needle was inserted and confirmed intraabdominal placement with a drop in pressure and the saline drop test. I then insufflated the abdomen to a maximum of 15 mmHg with warmed CO2 gas. I then placed a 8 mm trocar and then the Da Jeannie camera and intraperitoneal placement was confirmed. I then did a general scan of the abdomen and determined that the procedure could be continued robotically. The first robotic port was placed about 12 cm lateral to the right and left of the umbilical placement and slightly inferior. These are both 8 mm trocars. These were placed under direct visualization of the laparoscope. 0.25% Marcaine was injected prior to placement of all trocars. When all placements were confirmed, the patient was placed in steep Trendelenburg allowing adequate visualization and the robot was brought in for docking. The docking was accomplished without difficulty. A survey of the pelvis confirmed the above mentioned findings. An engineer assistant port was placed in the right upper quadrant, snf between the medial and right lower port and superior. This is a 10-12 mm port. I then took over the command of the robot utilizing the Bipolar forceps and monopolar selena. I was able to visualize the round ligaments bilaterally and grasped them and cauterized with bipolar cautery and then cut with my selena. At this point, I then did bilateral salpingectomy. I cut along the mesosalpinx and then removed the tube at the fimbriated end. The left tube was clubbed and very adherent to the mesosalpinx and the ovary on the left. This dissection took approximately 5-7 minutes to removed the tube and then to assure hemostasis. The tubes were left attached to the uterus. I then moved to the uteroovarian ligaments. I sealed the vessel and transected bilaterally using the bipolar cautery and then cut with the monopolar selena. I then moved my dissection to the posterior leaves of the broad ligament. I dissected the posterior leaves of the broad ligament off the uterine arteries skeletonizing them bilaterally. I then took a second clamp with the bipolar cautery and with the selena, transected the vessels away from the lateral aspect to the cervical stroma. I dissected the anterior peritoneum off the lower uterine segment. There was advancement of the bladder high on the lower uterine segment. The bladder was backfield to allow visualization of the bladder and the vesicouterine peritoneum. I continually pushed the bladder back and I took excessively great care and I was eventually able to dissect the vesicouterine peritoneum off the lower uterine segment. I then dissected in a V fashion towards the midline between the uterosacral ligaments. This allowed me to skeletonize the uterine vessels bilaterally. The balloon on the INES was insufflated. This allowed me to see the INES circumferentially. I then performed a colpotomy anteriorly and then amputate with cervix away from the vaginal fornix. I then continued the colpotomy circumferentially. Once this was performed, the engineer assistant removed the uterus through the vagina. A sponge was left in the vagina to maintain pneumoperitoneum. I then began closure of the vaginal cuff. The uterus was left in the vagina to maintain pneumoperitoneum. I closed the apices of the vaginal cuff with 2-0 Vicryl V lock sutures with a colposuspension through the uterosacral ligaments. This suspended the apices of the vaginal cuff. I extended this to the midline from both sides and overlapped the V lock sutures in the midline. Excellent closure is noted and hemostasis is achieved. All the needles were removed from the patient's abdomen. Now, the robotic instruments were removed and the robot was docked back to laparoscopy. The pelvis was irrigated. At this point I repeated an exam of the pelvis laparoscopically. The pelvis was irrigated. There was no active bleeding noted. Bilateral ureters were seen the entire time during the surgery and were peristalsing. The trocars were removed under direct visualization. The laparoscopic sites were visualized and found to be hemostatic. The trocar sites were injected with 0.25% Marcaine. I closed the 12 mm fascial incisions with a figure of 8 stitch of 0 Vicryl and then the skin incisions were closed with 4-0 Monocryl in a subcuticular fashion and then with Dermabond. Op sites were placed over the incision sites. The instruments were removed from the vagina and I noted there were no abrasions. Sponge, lap, needle and instrument counts correct times two. Findings of the Procedure enlarged anteverted uterus, advanced bladder flap, omental adhesion, bilateral tubal adhesions, left tube clubbed and adherent to uterus. Allergies and Home Medications Allergies Coded Allergies: No Known Drug Allergies (Unverified , 07/06/17) Home Medications Dextroamphetamine/Amphetamine 20 Mg Tablet, 20 MG PO BID, (Reported) Docusate Sodium 100 Mg Capsule, 100 MG PO BID, #60 Ref 2 Prescribed by: ТАТЬЯНА CORONA on 05/29/17 0849 Hydrocodone/Acetaminophen 1 Each Tablet, 1-2 EA PO Q6H PRN for PAIN-MODERATE, # 30 Prescribed by: JHONY PROCTOR on 07/13/17 1359 Ibuprofen 600 Mg Tablet, 600 MG PO Q6H PRN for PAIN-MILD, #60 Prescribed by: JHONY PROCTOR on 07/13/17 1359 Simethicone 80 Mg Tab.chew, 40 MG PO TID PRN for INDIGESTION, #120 Prescribed by: JHONY PROCTOR on 07/13/17 1359 Trazodone HCl 50 Mg Tablet, 100 MG PO HS, (Reported) JHONY PROCTOR DO Jul 13, 2017 09:51
[2017-07-13] MEDS ORDERED: NEOSTIGMINE (BLOXIVERZ ) 1 MG/1ML 10 ML VIAL ONE (09:58)
[2017-07-13] MEDS ORDERED: GLYCOPYRROLATE 0.2 MG/ML (ROBINUL) 2 ML VIAL ONE (09:58)
[2017-07-13] MEDS ORDERED: ONDANSETRON 4 MG/2 ML (SDV) Z0FRAN IV PRN (10:00)
[2017-07-13] MEDS ORDERED: SIMETHICONE 80 MG (MYLICON) CHEW PO PRN (10:00)
[2017-07-13] MEDS ORDERED: DOCUSATE SODIUM 100 MG (COLACE) CAP PO PRN (10:00)
[2017-07-13] MEDS ORDERED: CHLORASEPTIC LOZENGE MM PRN (10:00)
[2017-07-13] MEDS ORDERED: MEPERIDINE (DEMEROL) INJ 50 MG/ML IVP PRN (10:15)
[2017-07-13] MEDS ORDERED: ONDANSETRON 4 MG/2 ML (SDV) Z0FRAN IVP PRN (10:15)
[2017-07-13] MEDS ORDERED: morphine INJ 10 MG/ML 1ML (SYR OR VIAL) ONE (10:23)
[2017-07-13] MEDS: morphine INJ 10 MG/ML 1ML (SYR OR VIAL) IVP PRN ×3 (10:30→10:41)
[2017-07-13 11:25] VITALS: BP 128/83
[2017-07-13] MEDS: LACTATED RINGERS 1,000 ML IV SCH ×2 (13:09→18:35)
[2017-07-13] MEDS: HYDROcodone/APAP 7.5 MG/325 MG (LORTAB, LORCET PLUS) TABLET PO PRN ×2 (13:09→21:09)
[2017-07-13] MEDS ORDERED: IBUP-1773 PO (13:59)
[2017-07-13] MEDS ORDERED: HYDR-3816 PO (13:59)
[2017-07-13] MEDS ORDERED: SIME80TA16 PO (13:59)
--- NOTE | 2017-07-13 14:02 | Discharge Inst-Women's Service ---
Discharge Inst-Women's Serv Depart Medication/Instructions New, Converted or Re-Newed RX: RX on Chart Instructions no lifting over 25 lbs, no driving for 1 week, nothing in the vagina until released (10-12 weeks) Final Diagnosis dysmenorrhea historyof rectovaginal fistula LAUREN pap smear omental adhesions historyof cs x 4 peritubal adhesions Consults/Follow Up Additional Follow Up: Yes (1 week for incision check with Mila, 10-12 weeks for pelvic exam (will not be released until after that time)) Activity Activity: Activity as Tolerated Driving Instructions: No Driving for 1 Week NO SMOKING: NO SMOKING Nothing Inside Vagina: No Douching, No [place], No Tampons Diet Discharge Diet: No Restrictions Symptoms to Report to : Swelling Increased, Bleeding Excessive, Pain Increased, Fever Over 101 Degrees F, Vaginal Bleeding Increase, Vaginal Discharge Foul For Any Problems or Questions: Contact Your Physician Skin/Wound Care Infection Signs and Symptoms: Increased Redness, Foul Odor of Wound, Increased Drainage, Skin Itchy or Has a Rash, Increased Swelling, Temperature Above 101 F Operative Area Clean and Dry: Do Not Remove Bandage (keep bandages in place until follow up unless wet or soiled) Stitches/[place]/Dermabond: Dermabond Bathing Instructions: JHONY Gonzalez DO Jul 13, 2017 14:02
[2017-07-13 15:58] VITALS: BP 115/74
[2017-07-13] MEDS ORDERED: IBUPROFEN 600 MG (MOTRIN) TAB PO ONE (21:00)
[2017-07-13 21:05] VITALS: BP 115/77
[2017-07-13] MEDS: IBUPROFEN 600 MG (MOTRIN) TAB PO PRN (21:10)
[2017-07-14 00:10] VITALS: BP 103/66
[2017-07-14 05:05] VITALS: BP 96/56
[2017-07-14 08:00] VITALS: BP 98/56
[2017-07-14] MEDS: HYDROcodone/APAP 7.5 MG/325 MG (LORTAB, LORCET PLUS) TABLET PO PRN (08:06)
[2017-07-14] MEDS: IBUPROFEN 600 MG (MOTRIN) TAB PO PRN (08:07)
[2017-07-14 10:10] VITALS: BP 98/56
== END 2017-07-14 10:10 | disposition home or self-care (01) ==
LOC: SDC 06:10 → WS 11:10 → SDC 07-14 10:10
PROVIDERS: ATTEND Obstetrics & Gynecology
DX: N94.6 Dysmenorrhea, unspecified (principal); N80.0 Endometriosis of uterus; N73.6 Female pelvic peritoneal adhesions (postinfective); B19.20 Unspecified viral hepatitis C without hepatic coma; F17.210 Nicotine dependence, cigarettes, uncomplicated; F90.9 Attention-deficit hyperactivity disorder, unspecified type; Z79.899 Other long term (current) drug therapy
CPT/HCPCS: 84703; 87081; 88307; 94664

== ENCOUNTER 2019-02-22 13:52 | Emergency (ER) | payer MEDICAID ==
[~2019-02-22] VITALS: Ht 162.6 cm; Wt 72.6 kg
[~2019-02-22 13:52] MED LIST changes: -FERR-74 PO; +FERR325T18 PO; +HYDR-34 PO; -HYDR-3812 PO; +SIME80TA16 PO; +TRAZ-189 PO; -TRAZ-28 PO
[2019-02-22] MEDS ORDERED: CEPH-507 PO (14:04)
[2019-02-22] MEDS ORDERED: MUPI22OI2 TP (14:04)
--- NOTE | 2019-02-22 14:04 | ED Integumentary General ---
General Chief Complaint: Skin/Wound Problems Stated Complaint: FACIAL INFECTION Source: patient Exam Limitations: no limitations History of Present Illness Date Seen by Provider: Feb 22, 2019 Time Seen by Provider: 14:00 Initial Comments Right-sided facial infection intermittent for 3 years. No fevers chills or swelling. She has seen [facility] but this always comes back despite "creams and antibiotics". States that sometimes it leaks fluid and sometimes a crusts. Timing/Duration: intermittent Severity: mild Location: face Possible Cause: no cause identified Associated Symptoms: denies symptoms Allergies and Home Medications Allergies Coded Allergies: No Known Drug Allergies (Unverified , 07/06/17) Home Medications Dextroamphetamine/Amphetamine 20 Mg Tablet, 20 MG PO BID, (Reported) Docusate Sodium 100 Mg Capsule, 100 MG PO BID Prescribed by: ТАТЬЯНА CORONA on 05/29/17 0849 Hydrocodone Bit/Acetaminophen 1 Each Tablet, 1-2 EA PO Q6H PRN for PAIN-MODERATE Prescribed by: JHONY PROCTOR on 07/13/17 1359 Ibuprofen 600 Mg Tablet, 600 MG PO Q6H PRN for PAIN-MILD Prescribed by: JHONY PROCTOR on 07/13/17 1359 Simethicone 80 Mg Tab.chew, 40 MG PO TID PRN for INDIGESTION Prescribed by: JHONY PROCTOR on 07/13/17 1359 Trazodone HCl 50 Mg Tablet, 100 MG PO HS, (Reported) Patient Home Medication List Home Medication List Reviewed: Yes Review of Systems Review of Systems Constitutional: see HPI EENTM: see HPI Respiratory: no symptoms reported Cardiovascular: no symptoms reported Genitourinary: no symptoms reported Musculoskeletal: no symptoms reported Skin: see HPI Psychiatric/Neurological: No Symptoms Reported Past Bjytofg-Vnckzv-Wtkipn Hx Patient Social History Type Used: Cigarettes Recent Foreign Travel: No Contact w/Someone Who Travel: No Recent Hopitalizations: Yes ( May) Immunizations Up To Date Tetanus Booster (TDap): Unknown Seasonal Allergies Seasonal Allergies: No Past Medical History Surgeries: Yes ( AND WISDOM TEETH) Section, Orthopedic Respiratory: No Cardiac: No Neurological: No Reproductive Disorders: Yes (CHRONIC PELVIC PAIN) Female 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 Sexually Transmitted Disease: No HIV/AIDS: No Kidney Stones Gastrointestinal: Yes (hepatitis C) Hepatitis Musculoskeletal: No Endocrine: No Loss of Vision: Denies Hearing Impairment: Denies Cancer: No Psychosocial: Yes ADD/ADHD, Sleep Difficulties Integumentary: No Blood Disorders: No Adverse Reaction/Blood Tranf: No (N/A) Family Medical History FH: breast cancer 19 MOTHER No Pertinent Family Hx Physical Exam Vital Signs Capillary Refill : General Appearance: WD/WN, no apparent distress HEENT: PERRL/EOMI, normal ENT inspection, other (there is a 1.5 cm circular area of erythema to the anterior right cheek. This is fairly well demarcated. This is not elevated and is flat. There are no vesicles or bulla. There are honey colored crusts on this consistent with impetigo.) Neck: non-tender, full range of motion; No lymphadenopathy (R), No lymphadenopathy (L) Respiratory: normal breath sounds, no respiratory distress Neurologic/Psychiatric: alert, normal mood/affect, oriented x 3 Skin: normal color, warm/dry Skin Problem Location: face Skin Problem Character: erythema Progress/Results/Core Measures Results/Orders My Orders Orders - BONITA MARIE APRN Wound Culture (02/22/19 13:59) Departure Impression Primary Impression: Impetigo Disposition: 01 HOME, SELF-CARE Condition: Stable Departure-Patient Inst. Decision time for Depature: 14:02 Referrals: [facility]/ (PCP) Primary Care Physician Patient Instructions: Impetigo Add. Discharge Instructions: 1. Warm wet compresses to this area to clean the drainage/crusts off of it. Applied a topical antibiotic ointment twice a day for 10 days in addition to the oral antibiotics. Scripts Cephalexin (Keflex) 500 Mg Capsule 500 MG PO TID, #21 CAP Prov: BONITA MARIE APRN 02/22/19 Mupirocin (Mupirocin) 22 Gm Oint...g. 1 GM TP BID for 10 Days, #1 TUBE Prov: BONITA MARIE APRN 02/22/19 BONITA MARIE APRN Feb 22, 2019 14:04
[2019-02-22 14:11] VITALS: BP 150/90
== END 2019-02-22 14:13 | disposition home or self-care (01) ==
LOC: EDUNIT# 13:52 → ER 13:53
DX: L01.00 Impetigo, unspecified (principal); B19.20 Unspecified viral hepatitis C without hepatic coma; F98.8 Other specified behavioral and emotional disorders with onset usually occurring in childhood and adolescence; F90.9 Attention-deficit hyperactivity disorder, unspecified type; Z98.890 Other specified postprocedural states; Z97.5 Presence of (intrauterine) contraceptive device; Z87.442 Personal history of urinary calculi; Z80.3 Family history of malignant neoplasm of breast
CPT/HCPCS: 87070; 87077; 87205; 99282

== ENCOUNTER 2020-04-16 11:05 | Emergency (ER) | payer SELFPAY ==
[~2020-04-16] VITALS: Ht 162 cm; Wt 65.0 kg
[~2020-04-16 11:05] MED LIST changes: +CEPH-507 PO; +MUPI22OI2 TP; -TRAZ-189 PO; +TRZ50T PO
[2020-04-16] MEDS ORDERED: HYDROcodone/APAP 5 MG/325 MG (LORTAB) TAB PO ONE (11:15)
[2020-04-16] MEDS ORDERED: KETOROLAC 60 MG/2 ML VIAL IM ONE (11:15)
[2020-04-16] MEDS ORDERED: ORPHENADRINE 60 MG/2 ML (NORFLEX) AMP IM ONE (11:15)
--- NOTE | 2020-04-16 11:17 | ED Back Pain ---
General Stated Complaint: BACK PAIN Source of Information: Patient Exam Limitations: No Limitations History of Present Illness Date Seen by Provider: April 16, 2020 Time Seen by Provider: 11:15 Initial Comments To ER by private vehicle with reports of right-sided low back pain that radiates down the right leg. She mowed a few days ago and believes this was the cause of it. Today she was unable to get out of bed due to the pain. Her son had to help her into the emergency room. No loss of bowel or bladder control no loss of sensation of her genitals no fevers and no trauma. She has taken nothing for the pain. Location: Lumbar Spine, Paraspinous Muscles Timing/Duration: 1-2 Days Severity: Moderate Pain/Injury Location: Back Method of Injury: Unknown Associated Symptoms: denies symptoms, lower back pain Allergies and Home Medications Allergies Coded Allergies: No Known Drug Allergies (Unverified , 07/06/17) Home Medications Cephalexin 500 Mg Capsule, 500 MG PO TID Prescribed by: BONITA MARIE on 02/22/19 1404 Dextroamphetamine/Amphetamine 20 Mg Tablet, 20 MG PO BID, (Reported) Docusate Sodium 100 Mg Capsule, 100 MG PO BID Prescribed by: ТАТЬЯНА CORONA on 05/29/17 0849 Hydrocodone Bit/Acetaminophen 1 Each Tablet, 1-2 EA PO Q6H PRN for PAIN-MODERATE Prescribed by: JHONY PROCTOR on 07/13/17 1359 Ibuprofen 600 Mg Tablet, 600 MG PO Q6H PRN for PAIN-MILD Prescribed by: JHONY PROCTOR on 07/13/17 1359 Mupirocin 22 Gm Oint...g., 1 GM TP BID Prescribed by: BONITA MARIE on 02/22/19 1404 Simethicone 80 Mg Tab.chew, 40 MG PO TID PRN for INDIGESTION Prescribed by: JHONY PROCTOR on 07/13/17 1359 Trazodone HCl 50 Mg Tablet, 100 MG PO HS, (Reported) Patient Home Medication List Home Medication List Reviewed: Yes Review of Systems Constitutional: see HPI EENTM: see HPI Respiratory: no symptoms reported Cardiovascular: no symptoms reported Genitourinary: no symptoms reported Musculoskeletal: see HPI, back pain Skin: no symptoms reported Psychiatric/Neurological: No Symptoms Reported Past Omxwcys-Dqqgbb-Vlreks Hx Patient Social History Type Used: Cigarettes Recent Foreign Travel: No Contact w/Someone Who Travel: No Recent Hopitalizations: Yes ( May) Immunizations Up To Date Tetanus Booster (TDap): Unknown Seasonal Allergies Seasonal Allergies: No Past Medical History Surgeries: Yes ( AND WISDOM TEETH) Section, Orthopedic Respiratory: No Cardiac: No Neurological: No Reproductive Disorders: Yes (CHRONIC PELVIC PAIN) Female 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 Transmitted Disease: No HIV/AIDS: No Kidney Stones Gastrointestinal: Yes (hepatitis C) Hepatitis Musculoskeletal: No Endocrine: No Loss of Vision: Denies Hearing Impairment: Denies Cancer: No Psychosocial: Yes ADD/ADHD, Sleep Difficulties Integumentary: No Blood Disorders: No Adverse Reaction/Blood Tranf: No (N/A) Family Medical History FH: breast cancer 19 MOTHER No Pertinent Family Hx Physical Exam Vital Signs Vital Signs - First Documented 04/16/20 11:28 Temp 37.0 Pulse 86 Resp 18 B/P (MAP) 149/112 (124) Pulse Ox 98 O2 Delivery Room Air Capillary Refill : Height, Weight, BMI Height: 5'4.00" Weight: 160lbs. 6.0oz. [id number]; 30.8 BMI Method:Estimated General Appearance: WD/WN, Mild Distress (moaning) Neck: Full Range of Motion, Normal Inspection Respiratory: No Accessory Muscle Use, No Respiratory Distress Gastrointestinal: Non Tender, Soft Extremity: Normal Capillary Refill, Normal Inspection Neurologic/Psychiatric: Alert, Oriented x3 Skin: Normal Color, Warm/Dry Lower extremity strength 4 out of 5 bilateral Progress/Results/Core Measures Results/Orders Lab Results Laboratory Tests Test 04/16/20 11:30 Range/Units Urine Color YELLOW Urine Clarity CLEAR Urine pH 5.5 5-9 Urine Specific [place] >=1.030 1.016-1.022 Urine Protein NEGATIVE NEGATIVE Urine Glucose (UA) NEGATIVE NEGATIVE Urine Ketones NEGATIVE NEGATIVE Urine Nitrite NEGATIVE NEGATIVE Urine Bilirubin NEGATIVE NEGATIVE Urine Urobilinogen 0.2 < = 1.0 MG/DL Urine Leukocyte Esterase NEGATIVE NEGATIVE Urine RBC (Auto) NEGATIVE NEGATIVE Urine RBC 0-2 /HPF Urine WBC 2-5 /HPF Urine Squamous Epithelial Cells 25-50 H /HPF Urine Crystals PRESENT H /LPF Urine Calcium Oxalate Crystals RARE H /LPF Urine Bacteria MODERATE H /HPF Urine Casts NONE /LPF Urine Mucus MODERATE H /LPF Urine Culture Indicated NO Urine Test NEGATIVE NEGATIVE My Orders Orders - BONITA MARIE APRN Ua Culture If Indicated (04/16/20 11:08) Hcg,Qualitative Urine (04/16/20 11:09) Ketorolac Injection (Toradol Injection) (04/16/20 11:15) Orphenadrine Injection (Norflex Injectio (04/16/20 11:15) Hydrocodone/Apap 5/325 Tablet (Lortab 5 (04/16/20 11:15) Ct Lumbar Spine Wo (04/16/20 11:58) Ns (Ivpb) (Sodium Chloride 0.9%) (04/16/20 13:00) Ketamine Syringe (Ed Only) (Ketamine Syr (04/16/20 13:00) Medications Given in ED Current Medications Medications Dose Ordered Sig/Bassem Route Start Time Stop Time Status Last Admin Dose Admin Acetaminophen/ Hydrocodone Bitart 1 tab ONCE ONCE PO 04/16/20 11:15 04/16/20 11:16 DC 04/16/20 11:21 1 TAB Ketamine HCl 20 mg ONCE ONCE IV 04/16/20 13:00 04/16/20 13:01 DC 04/16/20 13:00 20 MG Ketorolac Tromethamine 60 mg ONCE ONCE IM 04/16/20 11:15 04/16/20 11:16 DC 04/16/20 11:21 60 MG Orphenadrine Citrate 60 mg ONCE ONCE IM 04/16/20 11:15 04/16/20 11:16 DC 04/16/20 11:21 60 MG Sodium Chloride 250 ml @ 999 mls/hr Q16M ONCE IV 04/16/20 13:00 04/16/20 13:15 DC 04/16/20 13:00 999 MLS/HR Vital Signs/I&O 04/16/20 04/16/20 11:28 12:51 Temp 37.0 Pulse 86 65 Resp 18 16 B/P (MAP) 149/112 (124) 138/93 (108) Pulse Ox 98 99 O2 Delivery Room Air Room Air Diagnostic Imaging Diagonstic Imaging: Xray Comments 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 TECHNIQUE: Multiple contiguous axial images were obtained through the lumbar spine without the use of intravenous contrast. Sagittal and coronal reformations were then performed. Auto Exposure Controls were utilized during the CT exam to meet ALARA standards for radiation dose reduction. INDICATION: Severe back pain radiating into the right leg. FINDINGS: Curvature of the lumbar spine is normal. There is minimal anterolisthesis of L5 on S1. Vertebral body heights are maintained. Disc spaces are preserved. No fracture is identified. There is fairly significant L5-S1 facet arthropathy. No spondylolysis is seen. Bilateral renal calculi are noted with the largest on the right approximately 7 mm in size. IMPRESSION: 1. No acute bony abnormality detected. There is lower lumbar facet arthropathy. 2. Bilateral nonobstructing nephrolithiasis. Dictated on workstation # [id number] Dict: 04/16/20 1308 Trans: 04/16/20 1312 [id number] Interpreted by: ELENO CALIXTO MD Electronically signed by: Departure Impression Primary Impression: Lumbar radiculopathy Disposition: 01 HOME, SELF-CARE Condition: Stable Departure-Patient Inst. Decision time for Depature: 13:17 [facility]: [facility] (PCP) Primary Care Physician KATIE GAN (Family) Primary Care Physician Patient Instructions: Radiculopathy (DC) Add. Discharge Instructions: . Follow-up with your doctor next week 2. Return to ER for any concerns 3. Scripts Prednisone (Prednisone) 20 Mg Tab 40 MG PO DAILY, #8 TAB 0 Refills Prov: BONITA MARIE APRN 04/16/20 Work/School Note: Work Release Form Date Seen in the Emergency Department: April 16, 2020 Return to Work: April 19, 2020 BONITA MARIE APRN April 16, 2020 11:17
[2020-04-16 11:49] LABS: BILIRUBIN,URINE NEGATIVE (NEGATIVE); CLARITY,URINE CLEAR; COLOR,URINE YELLOW; GLUCOSE, URINE (UA) NEGATIVE (NEGATIVE); KETONES,URINE NEGATIVE (NEGATIVE); LEUKOCYTE ESTERASE ,URINE NEGATIVE (NEGATIVE); NITRITE,URINE NEGATIVE (NEGATIVE); PH,URINE 5.5 (5-9); PROTEIN,URINE NEGATIVE (NEGATIVE)
[2020-04-16 11:57] LABS: BACTERIA,URINE MODERATE /HPF; CALCIUM OXALATE CRYSTALS,UR RARE /LPF; RBC,URINE 0-2 /HPF; SQUAMOUS EPITHELIAL CELL,UR 25-50 /HPF
[2020-04-16 12:51] VITALS: BP 138/93
[2020-04-16] MEDS ORDERED: KETAMINE/NaCl 50 MG/5 ML SYRINGE (ED ONLY) IV ONE (13:00)
[2020-04-16] MEDS ORDERED: NS (IVPB) 250 ML IV ONE (13:00)
--- NOTE | 2020-04-16 13:12 | Diagnostic Imaging Report ---
PROCEDURE: CT lumbar spine without contrast. TECHNIQUE: Multiple contiguous axial images were obtained through the lumbar spine without the use of intravenous contrast. Sagittal and coronal reformations were then performed. Auto Exposure Controls were utilized during the CT exam to meet ALARA standards for radiation dose reduction. INDICATION: Severe back pain radiating into the right leg. FINDINGS: Curvature of the lumbar spine is normal. There is minimal anterolisthesis of L5 on S1. Vertebral body heights are maintained. Disc spaces are preserved. No fracture is identified. There is fairly significant L5-S1 facet arthropathy. No spondylolysis is seen. Bilateral renal calculi are noted with the largest on the right approximately 7 mm in size. IMPRESSION: 1. No acute bony abnormality detected. There is lower lumbar facet arthropathy. 2. Bilateral nonobstructing nephrolithiasis. Dictated by: Dictated on workstation # [id number]
[2020-04-16] MEDS ORDERED: PRD20T PO (13:22)
[2020-04-16] MEDS ORDERED: HYDR-3875 PO (13:22)
[2020-04-16 13:29] VITALS: BP 130/89
== END 2020-04-16 13:37 | disposition home or self-care (01) ==
LOC: EDUNIT# 11:05 → ER 11:06
DX: M54.16 Radiculopathy, lumbar region (principal); F90.9 Attention-deficit hyperactivity disorder, unspecified type; Z80.3 Family history of malignant neoplasm of breast; X50.9XXA Other and unspecified overexertion or strenuous movements or postures, initial encounter
CPT/HCPCS: 72131; 81000; 84703; 96372

== ENCOUNTER 2020-07-30 21:05 | Emergency (ER) | payer SELFPAY ==
[~2020-07-30] VITALS: Ht 162.5 cm; Wt 73.0 kg
[~2020-07-30 21:05] MED LIST changes: +HYDR-3875 PO; +PRD20T PO
--- NOTE | 2020-07-30 21:24 | ED Lower Extremity ---
General Stated Complaint: L FOOT PAIN,SWELLING,UNABLE TO WALK Source: patient Exam Limitations: no limitations History of Present Illness Date Seen by Provider: Jul 30, 2020 Time Seen by Provider: 21:21 Initial Comments To ER with left ankle pain and minor swelling that began earlier this evening. She doesn't recall any particular injury but she was emotionally distraught looking for her eloped pet ferret and she might have injured it at that point. She was cleaning a house this evening when she noticed that her ankle was tender. No fevers no chills no body aches. No redness. Onset: this evening Severity: moderate Pain/Injury Location: left ankle Method of Injury: fell Modifying Factors: Worse With Movement Allergies and Home Medications Allergies Coded Allergies: No Known Drug Allergies (Unverified , 07/06/17) Home Medications Cephalexin 500 Mg Capsule, 500 MG PO TID Prescribed by: BONITA MARIE on 02/22/19 1404 Dextroamphetamine/Amphetamine 20 Mg Tablet, 20 MG PO BID, (Reported) Docusate Sodium 100 Mg Capsule, 100 MG PO BID Prescribed by: ТАТЬЯНА CORONA on 05/29/17 0849 Hydrocodone Bit/Acetaminophen 1 Each Tablet, 1-2 EA PO Q6H PRN for PAIN-MODERATE Prescribed by: JHONY PROCTOR on 07/13/17 1359 Hydrocodone/Acetaminophen 1 Each Tablet, 1 EACH PO Q4H PRN for PAIN-MODERATE (5- 7) Prescribed by: BONITA MARIE on 04/16/20 1322 Ibuprofen 600 Mg Tablet, 600 MG PO Q6H PRN for PAIN-MILD Prescribed by: JHONY PROCTOR on 07/13/17 1359 Mupirocin 22 Gm Oint...g., 1 GM TP BID Prescribed by: BONITA MARIE on 02/22/19 1404 Prednisone 20 Mg Tab, 40 MG PO DAILY Prescribed by: BONITA MARIE on 04/16/20 1322 Simethicone 80 Mg Tab.chew, 40 MG PO TID PRN for INDIGESTION Prescribed by: JHONY PROCTOR on 07/13/17 1359 Trazodone HCl 50 Mg Tablet, 100 MG PO HS, (Reported) Patient Home Medication List Home Medication List Reviewed: Yes Review of Systems Constitutional: see HPI EENTM: see HPI Respiratory: no symptoms reported Cardiovascular: no symptoms reported Genitourinary: no symptoms reported Musculoskeletal: see HPI Skin: no symptoms reported Psychiatric/Neurological: No Symptoms Reported Past Mkbubqa-Icttnm-Tuqade Hx Patient Social History Type Used: Cigarettes 2nd Hand Smoke Exposure: Yes Recent Foreign Travel: No Contact w/Someone Who Travel: No Recent Hopitalizations: No Immunizations Up To Date Tetanus Booster (TDap): Unknown Seasonal Allergies Seasonal Allergies: No Past Medical History Surgeries: Yes (shoulder sx and nasal sx) Section Respiratory: No Cardiac: No Neurological: Yes Headaches /Migraines Reproductive Disorders: Yes (CHRONIC PELVIC PAIN) Female 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 6.0oz. [id number]; 24.00 BMI Method:Estimated General Appearance: WD/WN, no apparent distress HEENT: PERRL/EOMI, normal ENT inspection Respiratory: no respiratory distress, no accessory muscle use Hips: bilateral hip non-tender, bilateral hip normal inspection, bilateral hip normal range of motion Legs: bilateral leg non-tender, bilateral leg normal inspection, bilateral leg normal range of motion Knees: bilateral knee non-tender, bilateral knee normal inspection, bilateral knee normal range of motion Ankles: left ankle other (questionable swelling about the lateral malleolus. Strong dorsalis pedis pulse. The foot and ankle appear normal. With symptoms present for less than 3 hours I'm a little hesitant to do an arthrocentesis. We will start with conservative approach including imaging. 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 Decision time for Depature: 21:23 Referrals: [facility] [place] (PCP) Primary Care Physician KATIE GAN (Family) Primary Care Physician Patient Instructions: Acute Pain, Adult Add. Discharge Instructions: Tylenol and ibuprofen for pain 2. Crutches as needed 3. Return to ER for any concerns. Follow-up with your doctor within 48 hours for recheck. BONITA MARIE APRN Jul 30, 2020 21:24
[2020-07-30] MEDS ORDERED: KETOROLAC 60 MG/2 ML VIAL IM ONE (21:30)
--- NOTE | 2020-07-30 21:53 | Diagnostic Imaging Report ---
EXAM: ANKLE, LEFT, 3 VIEWS INDICATION: Left ankle pain. COMPARISON: None. FINDINGS: No fracture or malalignment. No suspicious osteoblastic or lytic lesions. Soft tissue shadows are unremarkable. IMPRESSION: Negative left ankle radiographs. Dictated by: Dictated on workstation # [id number]
[2020-07-30 22:00] VITALS: BP 137/94
== END 2020-07-30 22:03 | disposition home or self-care (01) ==
LOC: EDUNIT# 21:05 → ER 21:06
DX: M25.572 Pain in left ankle and joints of left foot (principal); F90.9 Attention-deficit hyperactivity disorder, unspecified type; Z77.22 Contact with and (suspected) exposure to environmental tobacco smoke (acute) (chronic); Z80.3 Family history of malignant neoplasm of breast; Z79.52 Long term (current) use of systemic steroids
CPT/HCPCS: 73610

== ENCOUNTER 2023-02-23 15:17 | Emergency (ER) | payer SELFPAY ==
[~2023-02-23] VITALS: Ht 162 cm; Wt 73.0 kg
--- NOTE | 2023-02-23 15:48 | ED Upper Extremity ---
General Chief Complaint: Upper Extremity Stated Complaint: RIGHT ARM PAIN Nursing Triage Note: PT AMB TO TRIAGE, PT CO OF R ARM/ELBOW PAIN 07/01. STATES BUMPED IT A COUPLE WEEKS AGO AND NOT BETTER, STATES UNABLE TO STRAIGHTEN OUT Source: patient Exam Limitations: no limitations (LORA SEPULVEDA) History of Present Illness Date Seen by Provider: Feb 23, 2023 Time Seen by Provider: 15:44 Initial Comments Patient is a 42-year-old female presents ED with right lateral elbow pain. She states 2 weeks ago she hit her elbow on the lateral side against a door. She had immediate pain. She states over the past 2 weeks the pain has gotten worse difficulty with extension of the wrist or gripping objects. She noticed some swelling to the right lateral elbow. Has been using warm compresses, anti-inflammatories without much improvement. Pain with pronation. Denies history of previous fracture. Difficulty with full extension. Denies of any previous imaging. Denies fever, chills, chest pain, cough, shortness of breath. (LORA SEPULVEDA) Allergies and Home Medications Allergies Coded Allergies: No Known Drug Allergies (Unverified , 07/06/17) Patient Home Medication List Home Medication List Reviewed: Yes (LORA SEPULVEDA) Cephalexin (Keflex) 500 Mg Capsule, 500 MG PO TID Prescribed by: BONITA MARIE on 02/22/19 1404 Dextroamphetamine/Amphetamine (Adderall 20 mg Tablet) 20 Mg Tablet, 20 MG PO BID, (Reported) Entered as Reported by: GILA GOSS on 07/06/17 0912 Docusate Sodium (Docusate Sodium) 100 Mg Capsule, 100 MG PO BID Prescribed by: ТАТЬЯНА CORONA on 05/29/17 0849 Hydrocodone Bit/Acetaminophen (Lortab 7.5 Mg Tablet) 1 Each Tablet, 1-2 EA PO Q6H PRN for PAIN-MODERATE Prescribed by: JHONY PROCTOR on 07/13/17 1359 Hydrocodone/Acetaminophen (Lorcet Plus 7.5-325 mg Tablet) 1 Each Tablet, 1 EACH PO Q4H PRN for PAIN-MODERATE (5-7) Prescribed by: BONITA MARIE on 04/16/20 1322 Ibuprofen (Ibuprofen) 600 Mg Tablet, 600 MG PO Q6H PRN for PAIN-MILD Prescribed by: JHONY PROCTOR on 07/13/17 1359 Mupirocin (Mupirocin) 22 Gm Oint...g., 1 GM TP BID Prescribed by: BONITA MARIE on 02/22/19 1404 Naproxen (Naproxen) 500 Mg Tablet, 500 MG PO Q12H Prescribed by: AMY BRISENO on 02/23/23 1622 Prednisone (Prednisone) 20 Mg Tab, 40 MG PO DAILY Prescribed by: BONITA MARIE on 04/16/20 1322 Simethicone (Simethicone) 80 Mg Tab.chew, 40 MG PO TID PRN for INDIGESTION Prescribed by: JHONY PROCTOR on 07/13/17 1359 Trazodone HCl (Trazodone HCl) 50 Mg Tablet, 100 MG PO HS, (Reported) Entered as Reported by: MIRANDA LUU on 11/22/15 1319 Review of Systems Constitutional: No chills, No diaphoresis, No malaise, No weakness EENTM: No hearing loss, No ear pain, No blurred vision, No mouth pain, No mouth swelling Respiratory: No cough, No dyspnea on exertion, No short of breath Cardiovascular: No chest pain, No palpitations Gastrointestinal: No abdominal pain, No diarrhea, No nausea, No vomiting Genitourinary: No decreased output, No discharge Musculoskeletal: No back pain; joint pain, joint swelling Skin: No change in color, No change in hair/nails (LORA SEPULVEDA) All Other Systems Reviewed Negative Unless Noted: Yes (LORA SEPULVEDA) Past Gyalpzs-Cosiof-Sluqmb Hx Patient Social History Tobacco Use?: Yes Tobacco type used: Cigarettes Smoking Status: Current Everyday Smoker Substance use?: No Alcohol Use?: No Pt feels they are or have been: No (LORA SEPULVEDA) Immunizations Up To Date Tetanus Booster (TDap): Unknown Influenza Vaccine Up-to-Date: No; Not Current (LORA SEPULVEDA) Seasonal Allergies Seasonal Allergies: No (LORA SEPULVEDA) Past Medical History Surgery/Hospitalization HX: R SHOULDER AND R KNEE SURG, HYST, 4 C-SECTIONS Surgeries: Yes (shoulder sx and nasal sx, RIGHT KNEE) Section, Orthopedic Respiratory: No Cardiac: No Neurological: Yes Headaches /Migraines Reproductive Disorders: Yes (CHRONIC PELVIC PAIN) Female 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 6.0oz. [id number]; 27.00 BMI Method:Estimated General Appearance: WD/WN, no apparent distress HEENT: PERRL/EOMI, normal ENT inspection, TMs normal, pharynx normal Neck: non-tender, full range of motion, supple Cardiovascular: regular rate, rhythm, no edema, no gallop, no JVD Respiratory: chest non-tender, lungs clear, normal breath sounds, no respiratory distress, no accessory muscle use Gastrointestinal: normal bowel sounds, non tender, soft, no organomegaly Shoulder: normal inspection, non-tender, no evidence of injury, normal ROM Elbow/Forearm: bone tenderness (Right lateral epicondyle.), limited ROM (Limited full extension with flexion to 120 degrees. Pain with resistance with pronation. Pain to the right lateral elbow with resistance to wrist extension. Mild swelling to the right lateral elbow), pain (Tenderness to right lateral epicondyle.) Wrist: Yes normal inspection, Yes non-tender, Yes normal ROM Hand: normal inspection, non-tender, Right (LORA SEPULVEDA) Departure Communication (PCP) Due to continuous pain and location of pain x-ray was ordered of the right elbow. X-ray was negative for fracture. She did have pain with resistance to wrist extension, pronation. Concerning for right lateral epicondylitis. Recommend anti-inflammatories, ice, contraband, rest. Provided range of motion exercises and strengthening exercises. Orthopedic follow-up in 2 to 3 weeks if pain persist. Discussed avoiding lifting anything away from the body. (LORA SEPULVEDA) Impression Primary Impression: Elbow pain Disposition: 01 HOME, SELF-CARE Condition: Stable Departure-Patient Inst. Decision time for Depature: 15:46 (LORA SEPULVEDA) Referrals: NO,LOCAL PHYSICIAN (PCP) Primary Care Physician HALLEY SANCHEZ MD Patient Instructions: Elbow Sprain (DC), Elbow Tendinopathy (Tennis and Golf Elbow) Add. Discharge Instructions: Recommend ice, anti-inflammatories. Recommend counterforce band to the right elbow. Discussed range of motion and strength exercises. Return precautions were discussed with patient. Orthopedic outpatient follow-up for further evaluation pain progress All discharge instructions reviewed with patient and/or family. Voiced understanding. Scripts Naproxen (Naproxen) 500 Mg Tablet 500 MG PO Q12H, #20 TAB Prov: LORA SEPULVEDA 02/23/23 ATTENDING PHYSICIAN NOTE: I was physically present as attending physician in the emergency department during the care of this patient, but I was not directly involved in the decision making or delivery of care for this patient. (VIRI WEST MD) LORA SEPULVEDA Feb 23, 2023 15:48 VIRI WEST MD Feb 24, 2023 13:39
[2023-02-23] MEDS ORDERED: NAPR-915 PO (16:22)
--- NOTE | 2023-02-24 17:13 | Diagnostic Imaging Report ---
INDICATION: Arm and elbow pain after injury several weeks ago. EXAMINATION: Right elbow, 3 views, on 02/23/2023. FINDINGS: There is no evidence for an acute fracture or dislocation. The joint spaces are well maintained. There is no significant soft tissue swelling. IMPRESSION: No acute process. Dictated by: Dictated on workstation # [id number]
== END 2023-02-23 16:29 | disposition home or self-care (01) ==
LOC: EDUNIT# 15:17 → ER 15:20
DX: M25.521 Pain in right elbow (principal); M79.89 Other specified soft tissue disorders; F17.210 Nicotine dependence, cigarettes, uncomplicated; W22.8XXA Striking against or struck by other objects, initial encounter
CPT/HCPCS: 73080

== ENCOUNTER 2023-08-11 08:05 | Emergency (ER) | payer SELFPAY ==
[~2023-08-11] VITALS: Ht 152.4 cm; Wt 63.5 kg
[~2023-08-11 08:05] MED LIST changes: +NAPR-915 PO
--- NOTE | 2023-08-11 08:33 | ED Neurological Problem ---
General Chief Complaint: Dizziness/Syncope Stated Complaint: DIZZY | CHILLS Nursing Triage Note: PT AMB TO RM 5 WITH CC OF DIZZINESS, CHILLS, AND NAUSEA SINCE YESTERDAY MORNING. PT STATES THAT SHE IS SO DIZZY THAT SHE CANT WALK. Source: patient Exam Limitations: no limitations History of Present Illness Date Seen by Provider: Aug 11, 2023 Time Seen by Provider: 08:18 Initial Comments This 43-year-old young lady presents to the emergency room by private vehicle with complaints of a vertiginous dizziness and disequilibrium that started sometime early yesterday. She had been traveling in [place] and the [facility] when symptoms started. She reports nearly falling in the shower yesterday be cause of dizziness and disequilibrium. Vertigo has been persistent since onset. She flew home yesterday and symptoms persisted through until this morning. She denies any speech, vision, motor, or sensory deficits. She feels chilled and nauseated. She is afebrile and somewhat hypertensive. Vital signs are otherwise unremarkable. She has never experienced vertigo like this before. She admits to occasional alcohol use but has not had any recently. She does smoke marijuana with last use last night. Her vertigo started before the marijuana use. She smokes tobacco. She denies significant medical problems. She was able to ambulate to the exam room on her own power without assistance. Patient specifically notes that the vertigo does not change with head movement, rest, or position. It seems to be worse with eyes closed. She clearly defines her vertigo as constant and not fatiguing. Allergies and Home Medications Allergies Coded Allergies: No Known Drug Allergies (Unverified , 07/06/17) Patient Home Medication List Home Medication List Reviewed: Yes Cephalexin (Keflex) 500 Mg Capsule, 500 MG PO TID Prescribed by: BONITA MARIE on 02/22/19 1404 Dextroamphetamine/Amphetamine (Adderall 20 mg Tablet) 20 Mg Tablet, 20 MG PO BID, (Reported) Entered as Reported by: GILA GOSS on 07/06/17 0912 Diazepam (Diazepam) 2 Mg Tablet, 2 MG PO Q6H PRN for DIZZINESS Prescribed by: VIRI MELARA on 08/11/23 1607 Docusate Sodium (Docusate Sodium) 100 Mg Capsule, 100 MG PO BID Prescribed by: ТАТЬЯНА CORONA on 05/29/17 0849 Hydrocodone Bit/Acetaminophen (Lortab 7.5 Mg Tablet) 1 Each Tablet, 1-2 EA PO Q6H PRN for PAIN-MODERATE Prescribed by: JHONY PROCTOR on 07/13/17 1359 Hydrocodone/Acetaminophen (Lorcet Plus 7.5-325 mg Tablet) 1 Each Tablet, 1 EACH PO Q4H PRN for PAIN-MODERATE (5-7) Prescribed by: BONITA MARIE on 04/16/20 1322 Ibuprofen (Ibuprofen) 600 Mg Tablet, 600 MG PO Q6H PRN for PAIN-MILD Prescribed by: JHONY PROCTOR on 07/13/17 1359 Meclizine HCl (Meclizine HCl) 25 Mg Tablet, 25 MG PO Q6H PRN for DIZZINESS Prescribed by: VIRI MELARA on 08/11/23 1606 Mupirocin (Mupirocin) 22 Gm Oint...g., 1 GM TP BID Prescribed by: BONITA MARIE on 02/22/19 1404 Naproxen (Naproxen) 500 Mg Tablet, 500 MG PO Q12H Prescribed by: AMY BRISENO on 02/23/23 1622 Ondansetron (Ondansetron Odt) 4 Mg Tab.rapdis, 4 MG SL Q4H PRN for NAUSEA/ VOMITING Prescribed by: VIRI MELARA on 08/11/23 1606 Prednisone (Prednisone) 20 Mg Tab, 40 MG PO DAILY Prescribed by: BONITA MARIE on 04/16/20 1322 Simethicone (Simethicone) 80 Mg Tab.chew, 40 MG PO TID PRN for INDIGESTION Prescribed by: JHONY PROCTOR on 07/13/17 1359 Trazodone HCl (Trazodone HCl) 50 Mg Tablet, 100 MG PO HS, (Reported) Entered as Reported by: MIRANDA LUU on 11/22/15 1319 Review of Systems Review of Systems Constitutional: no symptoms reported Eyes: No Symptoms Reported Ears, Nose, Mouth, Throat: no symptoms reported Respiratory: no symptoms reported Cardiovascular: see HPI Gastrointestinal: see HPI Genitourinary: no symptoms reported : No Musculoskeletal: no symptoms reported Skin: no symptoms reported Psychiatric/Neurological: See HPI Endocrine: No Symptoms Reported Hematologic/Lymphatic: No Symptoms Reported Past Bkmpjjn-Hskljv-Kxommq Hx Patient Social History Tobacco Use?: Yes Tobacco type used: Cigarettes Use of E-Cig and/or Vaping dev: No Substance use?: Yes Substance type: Marijuana Alcohol Use?: Yes Alcohol Frequency: Once in a while Immunizations Up To Date Tetanus Booster (TDap): Unknown Seasonal Allergies Seasonal Allergies: No Past Medical History Surgery/Hospitalization HX: R SHOULDER AND R KNEE SURG, HYST, 4 C-SECTIONS Surgeries: Yes (shoulder sx and nasal sx, RIGHT KNEE) Section, Hysterectomy, Orthopedic Respiratory: No Cardiac: No Neurological: Yes Headaches /Migraines Reproductive Disorders: Yes (CHRONIC PELVIC PAIN) Female Reproductive Disorders: Denies 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 Sexually Transmitted Disease: No HIV/AIDS: No Genitourinary: Yes Kidney Stones Gastrointestinal: No Hepatitis Musculoskeletal: No Endocrine: No HEENT: No Loss of Vision: Denies Hearing Impairment: Denies Cancer: No Psychosocial: Yes ADD/ADHD, Sleep Difficulties Integumentary: No Blood Disorders: No Adverse Reaction/Blood Tranf: No (N/A) Family Medical History FH: breast cancer 19 MOTHER No Pertinent Family Hx Physical Exam Vital Signs Vital Signs - First Documented 08/11/23 08:14 Temp 36.5 Pulse 51 B/P (MAP) 137/98 (111) Pulse Ox 99 O2 Delivery Room Air Capillary Refill : Height, Weight, BMI Height: 5'4.00" Weight: 160lbs. 6.0oz. 72.471602ob; 27.00 BMI Method:Estimated General Appearance: WD/WN, mild distress HEENT: PERRL/EOMI, normal ENT inspection, TMs normal, pharynx normal Neck: normal inspection Respiratory: lungs clear, normal breath sounds, no respiratory distress Cardiovascular: regular rate, rhythm, no edema, no murmur Gastrointestinal: normal bowel sounds, non tender, soft Extremities: normal inspection, no pedal edema Neurologic/Psychiatric: court deputy II-XII nml as tested, no motor/sensory deficits, alert, normal mood/affect, oriented x 3, other (Vishal-Hallpike was essentially negative. She maintained a vertigo sensation throughout the [place]-Hallpike maneuvers, but she did note vertigo seemed a little worse with head turned to the right) Cra[place] Nerves: normal hearing, normal speech, PERRL Coordination/Gait: normal finger to nose Motor/Sensory: no motor deficit, no sensory deficit Skin: normal color, warm/dry Progress/Results/Core Measures Results/Orders Lab Results Laboratory Tests Test 08/11/23 08:18 08/11/23 08:22 08/11/23 08:55 Range/Units White Blood Count 5.5 4.3-11.0 10^3/uL Red Blood Count 4.53 3.80-5.11 10^6/uL Hemoglobin 13.5 11.5-16.0 g/dL Hematocrit 41 35-52 % Mean Corpuscular Volume 90 80-99 fL Mean Corpuscular Hemoglobin 30 25-34 pg Mean Corpuscular Hemoglobin Concent 33 32-36 g/dL Red Cell Distribution Width 12.4 10.0-14.5 % Platelet Count 255 130-400 10^3/uL Mean Platelet Volume 9.8 9.0-12.2 fL Immature Granulocyte % (Auto) 0 % Neutrophils (%) (Auto) 59 42-75 % Lymphocytes (%) (Auto) 32 12-44 % Monocytes (%) (Auto) 6 0-12 % Eosinophils (%) (Auto) 3 0-10 % Basophils (%) (Auto) 0 0-10 % Neutrophils # (Auto) 3.3 1.8-7.8 10^3/uL Lymphocytes # (Auto) 1.7 1.0-4.0 10^3/uL Monocytes # (Auto) 0.3 0.0-1.0 10^3/uL Eosinophils # (Auto) 0.2 0.0-0.3 10^3/uL Basophils # (Auto) 0.0 0.0-0.1 10^3/uL Immature Granulocyte # (Auto) 0.0 0.0-0.1 10^3/uL Prothrombin Time 12.8 12.2-14.7 SEC INR Comment 0.9 0.8-1.4 Activated Partial Thromboplast Time 30 24-35 SEC D-Dimer 0.33 0.00-0.49 UG/ML Sodium Level 142 135-145 MMOL/L Potassium Level 4.1 3.6-5.0 MMOL/L Chloride Level 112 H 98-107 MMOL/L Carbon Dioxide Level 20 L 21-32 MMOL/L Anion Gap 10 5-14 MMOL/L Blood Urea Nitrogen 9 7-18 MG/DL Creatinine 0.70 0.60-1.30 MG/DL Estimat Glomerular Filtration Rate 111 BUN/Creatinine Ratio 13 Glucose Level 84 70-105 MG/DL Calcium Level 9.0 8.5-10.1 MG/DL Corrected Calcium 8.7 8.5-10.1 MG/DL Magnesium Level 2.2 1.6-2.4 MG/DL Total Bilirubin 0.7 0.1-1.0 MG/DL Aspartate Amino Transf (AST/SGOT) 26 5-34 U/L Alanine Aminotransferase (ALT/SGPT) 26 0-55 U/L Alkaline Phosphatase 80 40-136 U/L Troponin I < 0.028 <0.028 NG/ML Total Protein 7.5 6.4-8.2 GM/DL Albumin 4.4 3.2-4.5 GM/DL TSH [place] Testing 0.90 0.35-4.94 UIU/ML Serum Alcohol < 10 <10 MG/DL Influenza Type A (RT-PCR) Not Detected Not Detecte Influenza Type B (RT-PCR) Not Detected Not Detecte SARS-CoV-2 RNA (RT-PCR) Not Detected Not Detecte Urine Color YELLOW Urine Clarity CLEAR Urine pH 5.5 5-9 Urine Specific [place] 1.025 H 1.016-1.022 Urine Protein NEGATIVE NEGATIVE Urine Glucose (UA) NEGATIVE NEGATIVE Urine Ketones NEGATIVE NEGATIVE Urine Nitrite NEGATIVE NEGATIVE Urine Bilirubin NEGATIVE NEGATIVE Urine Urobilinogen 0.2 < = 1.0 MG/DL Urine Leukocyte Esterase NEGATIVE NEGATIVE Urine RBC (Auto) NEGATIVE NEGATIVE Urine RBC NONE /HPF Urine WBC NONE /HPF Urine Squamous Epithelial Cells 5-10 /HPF Urine Crystals NONE /LPF Urine Bacteria MODERATE H /HPF Urine Casts NONE /LPF Urine Mucus NEGATIVE /LPF Urine Culture Indicated NO Urine Opiates Screen NEGATIVE NEGATIVE Urine Oxycodone Screen NEGATIVE NEGATIVE Urine Methadone Screen NEGATIVE NEGATIVE Urine Propoxyphene Screen NEGATIVE NEGATIVE Urine Barbiturates Screen NEGATIVE NEGATIVE Ur Tricyclic Antidepressants Screen NEGATIVE NEGATIVE Urine Phencyclidine Screen NEGATIVE NEGATIVE Urine Amphetamines Screen NEGATIVE NEGATIVE Urine Methamphetamines Screen NEGATIVE NEGATIVE Urine Benzodiazepines Screen NEGATIVE NEGATIVE Urine Cocaine Screen NEGATIVE NEGATIVE Urine Cannabinoids Screen POSITIVE H NEGATIVE My Orders Orders - VIRI WEST MD Cbc With Automated Diff (08/11/23 08:33) Comprehensive Metabolic Panel (08/11/23 08:33) Magnesium (08/11/23 08:33) Ua Culture If Indicated (08/11/23 08:33) Ed Iv/Invasive Line Start (08/11/23 08:33) Thyroid Analyzer (08/11/23 08:38) Covid 19 Inhouse Test (08/11/23 08:38) Influenza A And B By Pcr (08/11/23 08:38) Protime With Inr (08/11/23 08:38) Partial Thromboplastin Time (08/11/23 08:38) Fibrin Degradation Products (08/11/23 08:38) Troponin I Mirtha (08/11/23 08:38) Chest 1 View, Ap/Pa Only (08/11/23 08:38) Ekg Tracing (08/11/23 08:38) Nothing By Mouth (08/11/23 Breakfast) Vital Signs Stroke Patient Q15M (08/11/23 08:38) Ct Head Wo-R/O Stroke (08/11/23 08:38) O2 (08/11/23 08:38) Monitor-Rhythm Ecg Trace Only (08/11/23 08:38) Dysphagia Screening Tool Q10MX1 (08/11/23 08:38) Ondansetron Injection (Ondansetron Inj (08/11/23 08:45) Lactated Ringers 1,000 Ml (Lactated Ring (08/11/23 08:45) Alcohol (08/11/23 09:29) Drug Screen Stat (Urine) (08/11/23 09:29) Ct Angio Head/Neck (08/11/23 12:15) Iohexol Injection (Omnipaque 350 Mg/Ml 1 (08/11/23 12:30) Received Contrast (Hold Metformin- Contr (08/11/23 12:30) Ns (Ivpb) 100 Ml (Sodium Chloride 0.9% 1 (08/11/23 12:30) Mri Brain W/O Contrast (08/11/23 14:13) Alprazolam Tablet (Alprazolam Tablet) (08/11/23 14:30) Medications Given in ED Vital Signs/I&O 08/11/23 08/11/23 08:14 16:03 Temp 36.5 Pulse 51 B/P (MAP) 137/98 (111) 129/95 Pulse Ox 99 O2 Delivery Room Air Blood Pressure Mean: 111 Progress Progress Note : Progress Note Patient was interviewed and examined at 0818. Stroke activation was not paged as symptoms have been present for approximately 24 hours and no focal neurologic deficits were appreciated on exam. She was therefore also not a thrombolytic candidate. Her vertigo does not seem to be consistent with BPPV as it does not fatigue and it does not worsen with head movement or position changes. These features prompted work-up of the MEDICAL BILLING REPRESENTATIVE. CT of the head was obtained and was unremarkable per radiologist's report noted below. Labs were obtained, reviewed, and interpreted by me. CBC, CMP, troponin, magnesium, thyroid analyzer, coagulation panel, COVID swab, and influenza swab were all unremarkable or negative. Urinalysis seemed contaminated with skin cells and bacteria but was otherwise unremarkable. Toxicology was positive for marijuana only. Patient was treated with Zofran and a liter of LR. Nausea improved but she continued to experience the vertigo. MEDICAL BILLING REPRESENTATIVE work-up continued with CT angiogram of head and neck. CT angiogram head and neck was also unremarkable per radiologist's report noted below. Symptoms persisted. Case was discussed with Dr. Wright, stroke neurologist at [facility]. She agreed that the patient's persistent nonfatiguing vertigo was concerning for possible MEDICAL BILLING REPRESENTATIVE lesion/stroke. She recommended MRI of the brain to complete the work-up. I discussed options with the patient. She was agreeable to MRI which was available. MRI was obtained and was unremarkable per radiologist's report reviewed as below. Patient was pretreated with Xanax prior to MRI to help with anxiety during the imaging. The Xanax seemed to improve her vertigo but did not resolve it. Prior to MRI, Mague maneuver was attempted starting on the right after Vishal-Hallpike. Mague maneuver did not significantly improve her vertigo. Patient was ultimately discharged in stable condition with recommendations as outlined in discharge instructions. See discharge instructions for further discussion. The exact cause of her vertigo is uncertain but could be related to viral illness or other non-CVA condition. Initial ECG Impression Date: Aug 11, 2023 Initial ECG Impression Time: 08:51 Initial ECG Rate: 47 Initial ECG Rhythm: S.Dmitry Initial ECG Impression: Normal Comment Sinus rhythm with slight bradycardia at 47 bpm at rest. No ST elevation or depression. No abnormal intervals or axis deviation. Diagnostic Imaging Diagonstic Imaging: Xray Plain Films/CT/US/NM/MRI: chest Comments NAME: CHAD SHELDON [facility] REC#: [id number] PT STATUS: [facility] ER : 1980 PHYSICIAN: VIRI WEST MD ADMIT DATE: 08/11/23/ER Signed Date of Exam:08/11/23 CHEST 1 VIEW, AP/PA ONLY CLINICAL INDICATION: Patient with vertigo/dizziness since back from vacation. EXAM: Portable chest x-ray, upright view. COMPARISON: None. FINDINGS: Lungs/pleura: Lungs are clear. There is no pneumothorax. There is no pleural effusion. Mediastinum: Unremarkable. Pulmonary vasculature: Unremarkable. Heart: Unremarkable. Bones/extrathoracic soft tissue: Unremarkable. IMPRESSION: There is no radiographic evidence of acute cardiopulmonary process. Dictated by: Dictated on workstation # [id number] Dict: 08/11/23929 Trans: 08/11/231803 SHAHEEN Interpreted by: CARLOZ VALENTIN MD Electronically signed by: CARLOZ VALENTIN MD 08/11/231803 Diagonstic Imaging: CT Plain Films/CT/US/NM/MRI: head Comments NAME: CHAD SHELDON [facility] REC#: [id number] PT STATUS: [facility] ER : 1980 PHYSICIAN: VIRI WEST MD ADMIT DATE: 08/11/23/ER Signed Date of Exam:08/11/23 CT HEAD WO-R/O STROKE PROCEDURE: CT head wo r/o stroke. TECHNIQUE: Multiple contiguous axial images were obtained through the brain without the use of intravenous contrast. Auto Exposure Controls were utilized during the CT exam to meet ALARA standards for radiation dose reduction. INDICATION: Vertigo and possible cerebrovascular accident COMPARISON: 11/22/2015 CT HEAD: CT images of the head were obtained. FINDINGS: Ventricles and sulci are within normal limits for size. There is no intracranial hemorrhage identified. There is no abnormal mass effect or shift of midline structures. IMPRESSION: Unremarkable CT of the head. Dictated by: Dictated on workstation # [id number] Dict: 08/11/23924 Trans: 08/11/23 1200 [facility] Interpreted by: GUILLERMO GARCIA MD Electronically signed by: GUILLERMO GARCIA MD 08/11/23 1200 Diagonstic Imaging: CT Plain Films/CT/US/NM/MRI: other (Angiogram head and neck) Comments NAME: CHAD SHELDON [facility] REC#: [id number] PT STATUS: REG ER : 1980 PHYSICIAN: VIRI WEST MD ADMIT DATE: 08/11/23/ER Signed Date of Exam:08/11/23 CT ANGIO HEAD/NECK PROCEDURE: CT angiography of the head and CT angiography of the neck with and without contrast. TECHNIQUE: Contiguous noncontrast images were obtained from the skull base through the vertex. After intravenous contrast administration, helical CT angiography of the neck was performed. Source data was reformatted into 3D MIP projections. Delayed post contrast acquisition was also obtained. Auto Exposure Controls were utilized during the CT exam to meet ALARA standards for radiation dose reduction. INDICATION: Dizziness and chills as well as fatigue. COMPARISON: Comparison is made with noncontrast head CT performed earlier the same day. FINDINGS: Delayed postcontrast imaging shows no abnormal enhancing lesion. CT angiographic portion of the study does show a three-vessel branching pattern to the aortic arch. The right and left common carotid arteries are widely patent. The carotid bifurcations are unremarkable. The right and left internal carotid arteries are widely patent. The vertebral arteries appear to be codominant. Both vertebral arteries are widely patent. The basilar artery is widely patent. The right and left posterior cerebral arteries are widely patent. The right and left anterior cerebral arteries are widely patent. The M1 and M2 segments of the right and left middle cerebral arteries are widely patent. No thromboemboli or evidence of large vessel occlusion is identified. The dural venous sinuses appear to be widely patent. IMPRESSION: Unremarkable CT angiogram of the head and neck. No thromboemboli or large vessel occlusion is identified. Dictated by: Dictated on workstation # [id number] Dict: 08/11/23 1246 Trans: 08/11/23 1553 [id number] Interpreted by: ELENO CALIXTO MD Electronically signed by: ELENO CALIXTO MD 08/11/23 1551 Diagonstic Imaging: MRI Plain Films/CT/US/NM/MRI: head Comments NAME: CHAD SHELDON [facility] REC#: [id number] PT STATUS: REG ER : 1980 PHYSICIAN: VIRI WEST MD ADMIT DATE: 08/11/23/ER Signed Date of Exam:08/11/23 MRI BRAIN W/O CONTRAST EXAMINATION: MR imaging brain without contrast. TECHNIQUE: Multiplanar, multisequence MR imaging of the brain was performed without contrast. HISTORY: Fatiguing persistent vertigo COMPARISON: 08/11/2023. FINDINGS: The ventricles and sulci are normal. There is no area of abnormal signal alteration of the brain parenchyma. There are no extra-axial fluid collection. There is no area of restricted diffusion or evidence of acute stroke. Flow voids are normal for major intracranial arteries and dural venous sinuses. The visualized paranasal sinuses are normal. The mastoid air cells are clear. The orbits are normal. IMPRESSION: No acute intracranial abnormality. Dictated by: Dictated on workstation # [id number] Dict: 08/11/23 1539 Trans: 08/11/23 1551 [facility] [id number] Interpreted by: CARLOS JORDAN DO Electronically signed by: CARLOS JORDAN DO 08/11/23 1551 Departure Impression Primary Impression: Vertigo Additional Impression: Disequilibrium Disposition: 01 HOME, SELF-CARE Condition: Improved Departure-Patient Inst. Decision time for Depature: 16:02 Referrals: [facility]/K (PCP/Family) Primary Care Physician Patient Instructions: Vertigo ED Add. Discharge Instructions: Drink plenty of clear liquids to stay well-hydrated. Use the Zofran (ondansetron) as prescribed for nausea or vomiting. For dizziness you may try meclizine as prescribed. If meclizine is not s ufficient to manage your dizziness, try the diazepam (Valium) as prescribed. Both meclizine and diazepam can cause significant drowsiness. Avoid driving, use of machinery, or making important decisions while on these medications. Schedule follow-up with your primary care provider if you are still having symptoms tomorrow. Return to the emergency room if you have worsening symptoms despite following these instructions. Also return to the ER if you have any other neurologic deficits such as confusion, problems forming or understanding speech, numbness or weakness of any body part, facial drooping, abrupt vision changes, etc. All discharge instructions reviewed with patient and/or family. Voiced understanding. Scripts Diazepam (Diazepam) 2 Mg Tablet 2 MG PO Q6H PRN for DIZZINESS, #5 TAB For vertigo not adequately controlled by Zofran and meclizine. Prov: VIRI WEST MD 08/11/23 Meclizine HCl (Meclizine HCl) 25 Mg Tablet 25 MG PO Q6H PRN for DIZZINESS, #10 TAB Prov: VIRI WEST MD 08/11/23 Ondansetron (Ondansetron Odt) 4 Mg Tab.rapdis 4 MG SL Q4H PRN for NAUSEA/VOMITING, #10 TAB Prov: VIRI WEST MD 08/11/23 Work/School Note: Work Release Form Date Seen in the Emergency Department: Aug 11, 2023 Return to Work: Aug 12, 2023 Restrictions: Return-No Vomiting(24hrs) Other Restrictions Listed Below: May need additional days off if vertico does not resolve. Copy Copies To 1: [facility]/VIRI MILLIGAN MD Aug 11, 2023 08:33
[2023-08-11 08:38] LABS: BASOPHILS % (AUTO) 0 % (0-10); EOSINOPHILS # (AUTO) 0.2 10^3/uL (0.0-0.3); EOSINOPHILS % (AUTO) 3 % (0-10); HEMATOCRIT 41 % (35-52); HEMOGLOBIN 13.5 g/dL (11.5-16.0); LYMPHOCYTES # (AUTO) 1.7 10^3/uL (1.0-4.0); LYMPHOCYTES % (AUTO) 32 % (12-44); MEAN CORPUSCULAR HEMOGLOBIN 30 pg (25-34); MEAN CORPUSCULAR HGB CONC 33 g/dL (32-36); MEAN CORPUSCULAR VOLUME 90 fL (80-99); MEAN PLATELET VOLUME 9.8 fL (9.0-12.2); MONOCYTES # (AUTO) 0.3 10^3/uL (0.0-1.0); MONOCYTES % (AUTO) 6 % (0-12); NEUTROPHILS # (AUTO) 3.3 10^3/uL (1.8-7.8); NEUTROPHILS % (AUTO) 59 % (42-75); PLATELET COUNT 255 10^3/uL (130-400); WHITE BLOOD COUNT 5.5 10^3/uL (4.3-11.0)
[2023-08-11] MEDS ORDERED: ONDANSETRON INJECTION 4 MG/2 ML (SDV) IVP ONE (08:45)
[2023-08-11] MEDS ORDERED: LACTATED RINGERS 1,000 ML 1,000 ML IV ONE (08:45)
[2023-08-11 08:46] LABS: ALBUMIN 4.4 GM/DL (3.2-4.5)
[2023-08-11 08:47] LABS: POTASSIUM 4.1 MMOL/L (3.6-5.0)
[2023-08-11 08:49] LABS: TOTAL PROTEIN 7.5 GM/DL (6.4-8.2)
[2023-08-11 08:51] LABS: BILIRUBIN,TOTAL 0.7 MG/DL (0.1-1.0)
[2023-08-11 08:53] LABS: CREATININE SERUM 0.7 MG/DL (0.60-1.30)
[2023-08-11 08:55] LABS: MAGNESIUM 2.2 MG/DL (1.6-2.4)
[2023-08-11 09:03] LABS: INR 0.9 (0.8-1.4); PROTHROMBIN TIME PATIENT 12.8 SEC (12.2-14.7)
[2023-08-11 09:06] LABS: FIBRIN DEGRADATION PRODUCTS 0.33 UG/ML (0.00-0.49)
[2023-08-11 09:19] LABS: BACTERIA,URINE MODERATE /HPF; BILIRUBIN,URINE NEGATIVE (NEGATIVE); CLARITY,URINE CLEAR; COLOR,URINE YELLOW; GLUCOSE, URINE (UA) NEGATIVE (NEGATIVE); KETONES,URINE NEGATIVE (NEGATIVE); LEUKOCYTE ESTERASE ,URINE NEGATIVE (NEGATIVE); NITRITE,URINE NEGATIVE (NEGATIVE); PH,URINE 5.5 (5-9); PROTEIN,URINE NEGATIVE (NEGATIVE)
--- NOTE | 2023-08-11 09:31 | Diagnostic Imaging Report ---
PROCEDURE: CT head wo r/o stroke. TECHNIQUE: Multiple contiguous axial images were obtained through the brain without the use of intravenous contrast. Auto Exposure Controls were utilized during the CT exam to meet ALARA standards for radiation dose reduction. INDICATION: Vertigo and possible cerebrovascular accident COMPARISON: 11/22/2015 CT HEAD: CT images of the head were obtained. FINDINGS: Ventricles and sulci are within normal limits for size. There is no intracranial hemorrhage identified. There is no abnormal mass effect or shift of midline structures. IMPRESSION: Unremarkable CT of the head. Dictated by: Dictated on workstation # [id number]
--- NOTE | 2023-08-11 09:35 | Diagnostic Imaging Report ---
CLINICAL INDICATION: Patient with vertigo/dizziness since back from vacation. EXAM: Portable chest x-ray, upright view. COMPARISON: None. FINDINGS: Lungs/pleura: Lungs are clear. There is no pneumothorax. There is no pleural effusion. Mediastinum: Unremarkable. Pulmonary vasculature: Unremarkable. Heart: Unremarkable. Bones/extrathoracic soft tissue: Unremarkable. IMPRESSION: There is no radiographic evidence of acute cardiopulmonary process. Dictated by: Dictated on workstation # [id number]
[2023-08-11 10:00] LABS: AMPHETAMINE SCREEN, URINE NEGATIVE (NEGATIVE); BARBITURATE SCREEN URINE NEGATIVE (NEGATIVE); CANNABINOID SCREEN, URINE POSITIVE (NEGATIVE); COCAINE SCREEN URINE NEGATIVE (NEGATIVE); METHADONE STAT NEGATIVE (NEGATIVE); OPIATE SCREEN URINE NEGATIVE (NEGATIVE); OXYCODONE STAT NEGATIVE (NEGATIVE); PROPOXYPHENE STAT NEGATIVE (NEGATIVE); TRICYCLIC ANTIDEPRESSANTS SCRE NEGATIVE (NEGATIVE)
[2023-08-11] MEDS ORDERED: HOLD METFORMIN - RECEIVED CONTRAST 20 ML VIAL IV SCH (12:30)
[2023-08-11] MEDS ORDERED: IOHEXOL 350 MG/ML 100 ML (OMNIPAQUE 350) VIAL IV ONE (12:30)
[2023-08-11] MEDS ORDERED: NS 100 ML (IVPB) BAG IV ONE (12:30)
--- NOTE | 2023-08-11 12:54 | Diagnostic Imaging Report ---
PROCEDURE: CT angiography of the head and CT angiography of the neck with and without contrast. TECHNIQUE: Contiguous noncontrast images were obtained from the skull base through the vertex. After intravenous contrast administration, helical CT angiography of the neck was performed. Source data was reformatted into 3D MIP projections. Delayed post contrast acquisition was also obtained. Auto Exposure Controls were utilized during the CT exam to meet ALARA standards for radiation dose reduction. INDICATION: Dizziness and chills as well as fatigue. COMPARISON: Comparison is made with noncontrast head CT performed earlier the same day. FINDINGS: Delayed postcontrast imaging shows no abnormal enhancing lesion. CT angiographic portion of the study does show a three-vessel branching pattern to the aortic arch. The right and left common carotid arteries are widely patent. The carotid bifurcations are unremarkable. The right and left internal carotid arteries are widely patent. The vertebral arteries appear to be codominant. Both vertebral arteries are widely patent. The basilar artery is widely patent. The right and left posterior cerebral arteries are widely patent. The right and left anterior cerebral arteries are widely patent. The M1 and M2 segments of the right and left middle cerebral arteries are widely patent. No thromboemboli or evidence of large vessel occlusion is identified. The dural venous sinuses appear to be widely patent. IMPRESSION: Unremarkable CT angiogram of the head and neck. No thromboemboli or large vessel occlusion is identified. Dictated by: Dictated on workstation # [id number]
[2023-08-11] MEDS ORDERED: ALPRAZolam 0.25 MG TABLET PO ONE (14:30)
--- NOTE | 2023-08-11 15:48 | Diagnostic Imaging Report ---
EXAMINATION: MR imaging brain without contrast. TECHNIQUE: Multiplanar, multisequence MR imaging of the brain was performed without contrast. HISTORY: Fatiguing persistent vertigo COMPARISON: 08/11/2023. FINDINGS: The ventricles and sulci are normal. There is no area of abnormal signal alteration of the brain parenchyma. There are no extra-axial fluid collection. There is no area of restricted diffusion or evidence of acute stroke. Flow voids are normal for major intracranial arteries and dural venous sinuses. The visualized paranasal sinuses are normal. The mastoid air cells are clear. The orbits are normal. IMPRESSION: No acute intracranial abnormality. Dictated by: Dictated on workstation # [id number]
[2023-08-11 16:03] VITALS: BP 129/95
[2023-08-11] MEDS ORDERED: DIAZ2TAB2 PO (16:06)
[2023-08-11] MEDS ORDERED: MECL-149 PO (16:06)
[2023-08-11] MEDS ORDERED: ONDA4TAB11 SL (16:06)
== END 2023-08-11 16:12 | disposition home or self-care (01) ==
LOC: EDUNIT# 08:05 → ER 08:07
DX: E87.8 Other disorders of electrolyte and fluid balance, not elsewhere classified (principal); R11.0 Nausea; F17.210 Nicotine dependence, cigarettes, uncomplicated; Z20.822 Contact with and (suspected) exposure to COVID-19
CPT/HCPCS: 70450; 70496; 70498; 70551; 71045; 80053; 80306; 81000; 83735; 84443; 84484; 85025; 85379; 85610; 85730; 87636; 93041; G0480; 36415; 80320; 93005